=== PATIENT | female | born 1970 | race Caucasian/White ===

== ENCOUNTER 2017-08-31 13:30 | Inpatient (IN) | payer SELFPAY ==
[~2017-08-31] VITALS: Ht 154.9 cm; Wt 42.2 kg
[2017-08-31] MEDS ORDERED: IV NORMAL SALINE 1,000ML 1,000 ML IV ONE ×3 (14:30→16:00)
[2017-08-31] MEDS ORDERED: ONDANSETRON PF 4 MG/2 ML VIAL. IV ONE (14:30)
[2017-08-31 14:31] LABS: BASO # 0.1 x10^3/uL (0.0-0.2); BASO % 1 % (0-3); EOS # 0.1 x10^3/uL (0.0-0.7); EOS % 1 % (0-3); HEMATOCRIT 54.7 % (36.0-47.0); HEMOGLOBIN 17.2 g/dL (12.0-15.5); LYMPH # 0.3 x10^3/uL (1.0-4.8); LYMPH % 3 % (24-48); MEAN CORPUSCULAR HEMOGLOBIN 33 pg (25-35); MEAN CORPUSCULAR HGB CONC 32 g/dL (31-37); MEAN CORPUSCULAR VOLUME 106 fL (79-100); MONO # 0.3 x10^3/uL (0.0-1.1); MONO % 2 % (0-9); NEUT # 10.7 x10^3uL (1.8-7.7); NEUT % 93 % (31-73); PLATELET COUNT 203 x10^3/uL (140-400); RED BLOOD COUNT 5.17 x10^6/uL (3.50-5.40); RED CELL DISTRIBUTION WIDTH 14.3 % (11.5-14.5); WHITE BLOOD COUNT 11.5 x10^3/uL (4.0-11.0)
[2017-08-31 14:31] LABS: BACTERIA,URINE 0 /HPF (0-FEW); BILIRUBIN,URINE NEG (NEG); CLARITY,URINE HAZY; COLOR,URINE YELLOW; GLUCOSE,URINE >=1000 mg/dL (NEG); NITRITE,URINE NEG (NEG); RBC,URINE 0 /HPF (0-2); SQUAMOUS EPITHELIAL CELL,UR FEW /LPF; UROBILINOGEN,URINE 1 mg/dL (0.2 mg/dL); WBC,URINE RARE /HPF (0-4)
[2017-08-31 14:39] LABS: ALBUMIN/GLOBULIN RATIO 0.4 (1.0-1.7); ALK PHOS 374 U/L (46-116); ALT (SGPT) 67 U/L (14-59); ANION GAP 8 (6-14); AST (SGOT) 136 U/L (15-37); BLOOD UREA NITROGEN 28 mg/dL (7-20); BUN/CREATININE RATIO 16 (6-20); CALCIUM 10.7 mg/dL (8.5-10.1); CARBON DIOXIDE 31 mmol/L (21-32); CHLORIDE 82 mmol/L (98-107); CREATINE KINASE < 15 U/L (26-192); CREATININE 1.8 mg/dL (0.6-1.0); GFR 30.3; LIPASE 38 U/L (73-393); POTASSIUM 4.3 mmol/L (3.5-5.1); SODIUM 121 mmol/L (136-145); TOTAL BILIRUBIN 0.7 mg/dL (0.2-1.0); TOTAL PROTEIN 7.2 g/dL (6.4-8.2)
[2017-08-31 14:48] LABS: BARBITURATES NEG (NEG); BENZODIAZEPINES NEG (NEG); CANNABINOIDS NEG (NEG); COCAINE NEG (NEG); METHADONE NEG (NEG); OPIATES NEG (NEG); PHENCYCLIDINE NEG (NEG)
[2017-08-31 14:49] LABS: AMPHETAMINE/METHAMPHETAMINE NEG (NEG)
[2017-08-31] MEDS ORDERED: INSULIN REGULAR 100 UNIT/ML 10ML VIAL. IV ONE (15:00)
[2017-08-31] MEDS ORDERED: PIPERACILLIN/TAZOBACTAM 3.375 GM in IV NORMAL SALINE 50ML 50 ML IV ONE (15:00)
[2017-08-31 15:03] LABS: BGAS PH 7.35 (7.35-7.45)
[2017-08-31 15:11] LABS: GLUCOSE 1270 mg/dL (70-99)
[2017-08-31] MEDS ORDERED: PIPERACILLIN/TAZOBACTAM 3.375 GM VIAL IV ONE (15:15)
[2017-08-31] MEDS ORDERED: IV NORMAL SALINE 50ML 50 ML ONE (15:15)
--- NOTE | 2017-08-31 15:31 | RAD ---
Indication: Weakness and elevated lactic acid. Time of exam 1517 hours. Correlation is made with prior exam from 11/10/2011. Airspace consolidation is noted in the left lung base, partially obscuring the left hemidiaphragm. This is likely owing to pneumonia. The right lung is clear. No effusion or pneumothorax is seen. Impression: Findings suggestive of left basilar pneumonia. Follow-up after course of therapy is recommended to confirm clearing.
--- NOTE | 2017-08-31 15:39 | PHYS DOC ---
Past History Past Medical History: Diabetes, Hypotension Additional Past Medical Histor: injection drug use Past Surgical History: Other Smoking: Cigarettes, Less than 1pk/day Alcohol Use: None Drug Use: None Adult General Chief Complaint Chief Complaint: nausea, vomiting, weakness HPI HPI 46-year-old female patient with history of diabetes mellitus and states she didn 't take any medication for the last one year because of financial problem. Patient complaining of frequent episodes of nausea and vomiting for the last 4 days and states she had more than 4 episodes of vomiting every day and tried to drink lots of sodas. Patient complaining of chronic constipation without new changed for the last 4 days. Patient complaining of urinary frequency without dysuria and generalized weakness and states she is hurting from head to toe and she never felt like this in her life. Patient complaining of episodes of cough during vomiting and left lateral chest wall pain with cough for the last 5 days. Review of Systems Review of Systems Constitutional: Denies fever or chills reports weakness[] Eyes: Denies change in visual acuity, redness, or eye pain [] HENT: Denies nasal congestion or sore throat [] Respiratory: Reports cough or shortness of breath [] Cardiovascular: No additional information not addressed in HPI [] GI: Denies abdominal pain, bloody stools or diarrhea , reports nausea and vomiting[] : Denies dysuria or hematuria [] Musculoskeletal: Denies back pain or joint pain, reports muscle pain [] Integument: Denies rash or skin lesions [] Neurologic: Denies headache, focal weakness or sensory changes [] Endocrine: Denies polyuria or polydipsia [] All other systems were reviewed and found to be within normal limits, except as documented in this note. Current Medications Current Medications Current Medications Medications (Trade) Dose Ordered Sig/[facility] Start Time Stop Time Status Last Admin Dose Admin Insulin Human Regular (NovoLIN R) 10 unit 1X ONCE 08/31/17 15:00 08/31/17 15:01 DC Insulin Human Regular 150 unit/ Sodium Chloride 151.5 ml @ 0 mls/hr 1X ONCE 08/31/17 15:45 08/31/17 15:46 Ondansetron HCl (Zofran) 4 mg 1X ONCE 08/31/17 14:30 08/31/17 14:31 DC Piperacillin Sod/ Tazobactam Sod (Zosyn) 3.375 gm STK-MED ONCE 08/31/17 15:15 08/31/17 15:16 DC Piperacillin Sod/ Tazobactam Sod 3.375 gm/Sodium Chloride 50 ml @ 100 mls/hr 1X ONCE 08/31/17 15:00 08/31/17 15:29 DC 08/31/17 15:20 100 MLS/HR Sodium Chloride 50 ml @ As Directed STK-MED ONCE 08/31/17 15:15 08/31/17 15:16 DC Allergies Allergies Allergies Coded Allergies Type Severity Reaction Last Updated Verified codeine Allergy Intermediate Unknown 04/04/14 Yes Physical Exam Physical Exam Constitutional: Moderate distress, toxic appearance ,very thin and dry, anxious. [] HENT: Normocephalic, atraumatic, bilateral external ears normal, oropharynx dry , no oral exudates, nose normal. [] Eyes: PERRLA, EOMI, conjunctiva normal, no discharge. [] Neck: Normal range of motion, no tenderness, supple, no stridor. [] Cardiovascular: Tachycardia, no murmur [] Lungs & Thorax: Bilateral breath sounds clear to auscultation [] Abdomen: Bowel sounds normal, soft, no tenderness, no masses, no pulsatile masses. [] Skin: Warm, dry, no erythema, no rash. [] Back: No tenderness, no CVA tenderness. [] Extremities: No tenderness, no cyanosis, no clubbing, ROM intact, no edema. [] Neurologic: Alert and oriented X 3, normal motor function, normal sensory function, no focal deficits noted. [] Psychologic: judgement normal, anxious Current Patient Data Vital Signs Vital Signs Date Time Temp Pulse Resp B/P (MAP) Pulse Ox O2 Delivery O2 Flow Rate FiO2 08/31/17 13:45 99.1 113 18 95 Room Air Lab Results Laboratory Tests Test 08/31/17 13:50 08/31/17 14:10 08/31/17 14:45 White Blood Count 11.5 x10^3/uL (4.0-11.0) H Red Blood Count 5.17 x10^6/uL (3.50-5.40) Hemoglobin 17.2 g/dL (12.0-15.5) H Hematocrit 54.7 % (36.0-47.0) H Mean Corpuscular Volume 106 fL (79-100) H Mean Corpuscular Hemoglobin 33 pg (25-35) Mean Corpuscular Hemoglobin Concent 32 g/dL (31-37) Red Cell Distribution Width 14.3 % (11.5-14.5) Platelet Count 203 x10^3/uL (140-400) Neutrophils (%) (Auto) 93 % (31-73) H Lymphocytes (%) (Auto) 3 % (24-48) L Monocytes (%) (Auto) 2 % (0-9) Eosinophils (%) (Auto) 1 % (0-3) Basophils (%) (Auto) 1 % (0-3) Neutrophils # (Auto) 10.7 x10^3uL (1.8-7.7) H Lymphocytes # (Auto) 0.3 x10^3/uL (1.0-4.8) L Monocytes # (Auto) 0.3 x10^3/uL (0.0-1.1) Eosinophils # (Auto) 0.1 x10^3/uL (0.0-0.7) Basophils # (Auto) 0.1 x10^3/uL (0.0-0.2) Prothrombin Time 11.1 SEC (9.4-11.4) Prothrombin Time INR 1.1 (0.9-1.1) Sodium Level 121 mmol/L (136-145) L Potassium Level 4.3 mmol/L (3.5-5.1) Chloride Level 82 mmol/L (98-107) L Carbon Dioxide Level 31 mmol/L (21-32) Anion Gap 8 (6-14) Blood Urea Nitrogen 28 mg/dL (7-20) H Creatinine 1.8 mg/dL (0.6-1.0) H Estimated GFR (Cockcroft-Gault) 30.3 BUN/Creatinine Ratio 16 (6-20) Glucose Level 1270 mg/dL (70-99) *H Lactic Acid Level 7.5 mmol/L (0.4-2.0) *H Calcium Level 10.7 mg/dL (8.5-10.1) H Total Bilirubin 0.7 mg/dL (0.2-1.0) Aspartate Amino Transferase (AST) 136 U/L (15-37) H Alanine Aminotransferase (ALT) 67 U/L (14-59) H Alkaline Phosphatase 374 U/L (46-116) H Creatine Kinase < 15 U/L (26-192) L Troponin I Quantitative < 0.017 ng/mL (0-0.055) Total Protein 7.2 g/dL (6.4-8.2) Albumin 2.0 g/dL (3.4-5.0) L Albumin/Globulin Ratio 0.4 (1.0-1.7) L Lipase 38 U/L (73-393) L Urine Collection Type Unknown Urine Color Yellow Urine Clarity Hazy Urine pH 5.5 Urine Specific [place] <=1.005 Urine Protein Neg (NEG-TRACE) Urine Glucose (UA) >=1000 mg/dL (NEG) Urine Ketones (Stick) Neg mg/dL (NEG) Urine Blood Neg (NEG) Urine Nitrite Neg (NEG) Urine Bilirubin Neg (NEG) Urine Urobilinogen Dipstick 1 mg/dL (0.2 mg/dL) Urine Leukocyte Esterase Neg (NEG) Urine RBC 0 /HPF (0-2) Urine WBC Rare /HPF (0-4) Urine Squamous Epithelial Cells Few /LPF Urine Bacteria 0 /HPF (0-FEW) Urine Opiates Screen Neg (NEG) Urine Methadone Screen Neg (NEG) Urine Barbiturates Neg (NEG) Urine Phencyclidine Screen Neg (NEG) Urine Amphetamine/Methamphetamine Neg (NEG) Urine Benzodiazepines Screen Neg (NEG) Urine Cocaine Screen Neg (NEG) Urine Cannabinoids Screen Neg (NEG) Urine Ethyl Alcohol Neg (NEG) Blood pH 7.35 (7.35-7.45) Blood Gas PCO2 49 mmHg (35-45) H Blood Gas PO2 65 mmHg (80-100) L Blood Gas HCO3 27 mmol/L (22-26) H Arterial Bld O2 Saturation (Calc) 91 % (92-99) L FiO2 21 % EKG EKG [EKG interpreted by me. EKG at 1529 showed sinus tachycardia rate of 103,left atrial enlargement, abnormal right axis deviation, poor R-wave progress in anteroseptal leads Radiology/Procedures Radiology/Procedures Chest x-ray showed left lower lobe infiltrate[] Course & Med Decision Making Course & Med Decision Making Pertinent Labs and Imaging studies reviewed. (See chart for details) Inhalation of patient in ER showed 46-year-old female patient with history of diabetes mellitus without taking her medication presented to ER with generalized weakness and nausea and vomiting and confusion. Patient had blood sugar of more than 600. ABG did not show DKA. Patient started on IV fluid and insulin bolus and drip. Blood sugar was 1271 and lactic acid was 7.5. Sepsis protocol was started. Chest x-ray showed left lower lobe infiltration. On-call hospitalist documented was consulted at 1520 and agreed with plan of care. Patient was admitted to ICU with continuing Insulin drip and IV fluid and Zosyn and vancomycin. Repeat blood sugars was more than 600. Dragon Disclaimer Dragon Disclaimer This electronic medical record was generated, in whole or in part, using a voice recognition dictation system. Departure Departure: Impression: Primary Impression: Type 2 diabetes mellitus with hyperosmolar nonketotic hyperglycemia Additional Impressions: Severe sepsis Nausea and vomiting Tobacco abuse CAP (community acquired pneumonia) Noncompliance with diabetes treatment Renal insufficiency Severe dehydration Disposition: 09 ADMITTED INPATIENT (At 1520) Admitting Physician: Tyrone Steve Condition: GUARDED Referrals: PCP,NO (PCP) Critical Care Time Critical care time was [120] minutes exclusive of procedures. Problem Qualifiers SOLEDAD HOPPER MD Aug 31, 2017 15:39
[2017-08-31] MEDS ORDERED: ONDANSETRON PF 4 MG/2 ML VIAL. IV PRN (15:45)
[2017-08-31] MEDS ORDERED: INSULIN REGULAR 150 UNIT in 0.9 % SODIUM CHLORIDE 150ML 150 ML IV ONE (15:45)
[2017-08-31] MEDS ORDERED: VANCOMYCIN 1 GM in IV NORMAL SALINE 250ML 250 ML IV ONE (16:30)
[2017-08-31] MEDS ORDERED: VANCOMYCIN 1 GM VIAL. ONE (16:47)
[2017-08-31] MEDS ORDERED: IV NORMAL SALINE 250ML 250 ML ONE (16:47)
[2017-08-31 18:20] VITALS: BP 170/97
--- NOTE | 2017-08-31 18:25 | EKG ---
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
[2017-08-31] MEDS: PIPERACILLIN/TAZOBACTAM 2.25 GM in IV NORMAL SALINE 50ML 50 ML IV SCH (18:35)
[2017-08-31] MEDS ORDERED: ENOXAPARIN 30 MG/0.3 ML DISP.SYRIN. SQ SCH (19:00)
[2017-08-31] MEDS: VANCOMYCIN PER PHARMACY MC PRN (19:06)
[2017-08-31 19:11] VITALS: BP 162/105
[2017-08-31] MEDS ORDERED: amLODIPine BESYLATE 5 MG TABLET PO ONE (19:15)
[2017-08-31 19:18] LABS: CALCIUM 9.1 mg/dL (8.5-10.1); CREATININE 1.3 mg/dL (0.6-1.0); GFR 44.1; POTASSIUM 3.1 mmol/L (3.5-5.1)
--- NOTE | 2017-08-31 19:31 | HP ---
ADMIT DATE: 08/31/2017 HISTORY OF PRESENT ILLNESS: The patient is a 46-year-old female patient who was brought to the Emergency Room with a complaint of recurrent episodes of nausea, vomiting, has been going on for the last 4 days. She apparently has been drinking 7 up and Sprite as her mouth is dry and she also complained of constipation and urinary frequency without dysuria, generalized weakness. She said that she has been hurting from head to toe and never felt like this in her life. She also had cough during vomiting and left lateral chest wall pain with cough for the last 5 days. She was evaluated in the Emergency Room, was found to have marked hyperglycemia with a blood sugar of , dilutional hyponatremia; however, anion gap was only 8. She has also elevated BUN and creatinine, hypercalcemia, deranged liver enzymes, and a lactic acid of 7.5. She has also mild leukocytosis. Her blood gases showed a pH of 7.35, pCO2 of 49, pO2 of 65. Urinalysis was unremarkable. Toxic screen was unremarkable. The patient was admitted with a hyperosmolar nonketotic hyperglycemia. Apparently, the patient has not had any medication diabetes for more than a year. The last thing she was on Invokana. She stated that she has not taken any medication for almost a year when she was in the Emergency Room. When she arrived to the ICU, she could not be more specific. PAST MEDICAL HISTORY: Significant for type 2 diabetes mellitus and hypertension. PAST SURGICAL HISTORY: Significant for cholecystectomy. ALLERGIES: She is allergic to CODEINE. MEDICATIONS: She has not been taking any medication by prescription. She has been taking Nyquil and DayQuil. FAMILY HISTORY: She is adopted and does not know her biological parents. SOCIAL HISTORY: She is , has 2 children, a daughter and a son. She smokes a pack a day. She does not drink alcohol or use any drugs. She is unemployed. REVIEW OF SYSTEMS: The patient denied any blurring of vision, cataract, glaucoma or macular degeneration. Denied any earache, tinnitus or sensorineural deafness. Denied any nosebleeds or postnasal drip. Denied any sore throat, sore tongue, toothache, hoarseness of voice or difficulty swallowing. Did complain of nausea and vomiting as well as constipation. Denied any diarrhea. She did complain of polyuria, but denied any dysuria or frequency. He did complain of left-sided chest pain, recurrent bouts of cough. She could not be more specific about the color of her sputum. PHYSICAL EXAMINATION: GENERAL: On arrival to the Emergency Room, she was pale, cachectic, but not jaundiced. She was only 93 pounds. There was no jaundice or cyanosis. No thyromegaly. No jugular venous distension. No lower limb edema. VITAL SIGNS: Her heart rate was 113, blood pressure was markedly elevated. Her temperature was 99.1, respiratory rate was 18, and oxygen saturation was 95%. HEAD, EYES, EARS, NOSE, AND THROAT: Showed normocephalic, atraumatic. NECK: Supple. HEART: Showed normal first and second heart sounds with no gallop, rub or murmur. CHEST: Shows central trachea, equally reduced expansion, reduced air entry, expansion with crepitation mostly on the left side posteriorly. ABDOMEN: Scaphoid, soft, nontender. No guarding or rigidity. No organomegaly. Hernial orifice intact. Bowel sounds normal. NEUROLOGIC: She was awake, alert, responding appropriately. Cranial nerves intact. EXTREMITIES: She moves extremities without difficulty. LABORATORY DATA: On arrival to the Emergency Room showed that her white cell count was 11,500, hemoglobin 17.2, hematocrit 54.7, MCV 106, and platelet count of 203,000 with normal manual differential. Her blood gases showed a pH of 7.35, pCO2 of 49, pO2 of 65, bicarbonate 27, and oxygen saturation was 91% on FIO2 of 21%. Her prothrombin time was 11.1, INR 1.1. Her chemistry showed a serum sodium 121, potassium 4.3, chloride 82, bicarbonate 31, anion gap of 8, BUN 28, creatinine 1.8. Her blood glucose was 1270, lactic acid was as high at 7.5, calcium was 10.5. Total bilirubin is normal. AST, ALT, alkaline phosphatase were markedly elevated. Her troponin was 7.2, albumin was 2, and serum lipase was 38. Her urinalysis was essentially unremarkable. Her urine was yellow, hazy with a pH of 5.5, specific gravity 1.005. The urine was negative for protein. There was large amount of glucose, negative for ketones, blood, nitrite, and leukocyte esterase. There were 0 rbc's, 0 wbc's, and no bacteria. His toxicology screen was essentially negative. His chest x-ray showed that airspace consolidation is noted in the left lung base, opacities obscuring the left hemidiaphragm. This is likely owing to pneumonia, the right lung is clear. No effusion or pneumothorax with the impression is that the finding is suggestive of left basilar pneumonia. Follow up after a course of therapy recommended to confirm clearing. SUMMARY: This is a 46-year-old female patient who is known to have type 2 diabetes and hypertension. Has not been on any medication for almost a year, came with recurrent bouts of nausea, vomiting, diarrhea, generalized aches and pains, and cough. She said she lost weight, but she could not specifically specify how much weight she lost and almost a year ago, she was on Invokana for her diabetes and has not been on any medication for more than a year now. Initial evaluation showed that she has hyperosmolar nonketotic hyperglycemia. She has leukocytosis, lactic acidosis, and sepsis due to left lower lobe pneumonia, dilutional hyponatremia, markedly deranged liver enzymes and also acute kidney injury. Her BUN was 28, creatinine 1.8. I do not have any baseline to compare with if she has any impaired kidney function before, although she likely or theoretically could have an impaired kidney function. Her BUN and creatinine in 2013 were 10 and 0.8. However, she does have impaired liver enzymes since that time, probably indicating that she has chronic liver disease, probably because of hepatitis or some other pathology. PLAN: My plan is to continue with the insulin drip, IV fluid. Her blood pressure was extremely high. I will start her also on Cardene drip and we will repeat all her labs tomorrow morning. Continue with IV antibiotic for pneumonia and decide. We will monitor her blood sugar and decide on further management accordingly. GUILLE DEVINE MD DR: KIKO/tony JOB#: [id number] / [id number]
[2017-08-31 20:00] VITALS: BP 163/96
[2017-08-31] MEDS ORDERED: IV NORMAL SALINE 1,000ML 1,000 ML IV SCH (20:15)
[2017-08-31] MEDS ORDERED: INSULIN REGULAR 150 UNIT in 0.9 % SODIUM CHLORIDE 150ML 150 ML IV PRN (20:15)
[2017-08-31 21:00] VITALS: BP 120/75
[2017-08-31 22:00] VITALS: BP 160/102
[2017-08-31 22:38] LABS: CALCIUM 9.2 mg/dL (8.5-10.1); CREATININE 0.9 mg/dL (0.6-1.0); GFR 67.4; POTASSIUM 3.3 mmol/L (3.5-5.1)
[2017-08-31 23:00] VITALS: BP 150/94
[2017-08-31] MEDS ORDERED: MAGNESIUM SULFATE 2GM 50 ML IV ONE (23:00)
[2017-08-31] MEDS: POTASSIUM CL 20MEQ D5-0.45NACL 1,000 ML IV SCH (23:20)
[2017-09-01] VITALS (8 sets, daily range): BP systolic 141–187; BP diastolic 93–123
[2017-09-01] MEDS: PIPERACILLIN/TAZOBACTAM 2.25 GM in IV NORMAL SALINE 50ML 50 ML IV SCH (01:34)
[2017-09-01 06:21] LABS: HEMATOCRIT 45.5 % (36.0-47.0); HEMOGLOBIN 15.5 g/dL (12.0-15.5); RED BLOOD COUNT 4.67 x10^6/uL (3.50-5.40); RED CELL DISTRIBUTION WIDTH 13.3 % (11.5-14.5); WHITE BLOOD COUNT 10.8 x10^3/uL (4.0-11.0)
[2017-09-01] MEDS ORDERED: MORPHINE SULFATE 2 MG/ML DISP.SYRIN. IV PRN (06:30)
[2017-09-01 06:35] LABS: ALBUMIN 1.6 g/dL (3.4-5.0); ALBUMIN/GLOBULIN RATIO 0.4 (1.0-1.7); CALCIUM 9.1 mg/dL (8.5-10.1); CREATININE 1.1 mg/dL (0.6-1.0); GFR 53.5; POTASSIUM 4.1 mmol/L (3.5-5.1); TOTAL BILIRUBIN 0.5 mg/dL (0.2-1.0); TOTAL PROTEIN 6.1 g/dL (6.4-8.2)
[2017-09-01] MEDS ORDERED: amLODIPine BESYLATE 10 MG TABLET PO ONE (06:45)
[2017-09-01] MEDS: POTASSIUM CL 20MEQ D5-0.45NACL 1,000 ML IV SCH (06:53)
[2017-09-01] MEDS ORDERED: DEXTROSE 50% 25 GM / 50ML DISP.SYRIN. IV PRN (07:30)
[2017-09-01] MEDS ORDERED: KETOROLAC 30 MG/ML VIAL. IV PRN (07:30)
[2017-09-01] MEDS ORDERED: ACETAMINOPHEN 325 MG TABLET PO PRN (07:30)
[2017-09-01] MEDS ORDERED: INSULIN ASPART 300 UNITS/3 ML INSULN.PEN SQ PRN (07:30)
[2017-09-01] MEDS: VANCOMYCIN PER PHARMACY MC PRN (10:57)
[2017-09-01] MEDS ORDERED: VANCOMYCIN 750 MG in IV NORMAL SALINE 250ML 250 ML IV SCH (18:30)
[2017-09-02 01:09] LABS: HCV ANTIBODY >11.0 s/co ratio (0.0-0.9); HEP A IGM ABDY Negative (Negative)
[2017-09-02 02:07] LABS: HEMOGLOBIN A1C 16.7 % (4.8-5.6)
== END 2017-09-01 10:33 | disposition left against medical advice (07) | DRG 871 ==
LOC: ER 13:30 → ICU 15:34
PROVIDERS: ADMIT Internal Medicine; ATTEND Internal Medicine
DX: A41.9 Sepsis, unspecified organism (principal); E11.00 Type 2 diabetes mellitus with hyperosmolarity without nonketotic hyperglycemic-hyperosmolar coma (NKHHC); J18.9 Pneumonia, unspecified organism; N17.9 Acute kidney failure, unspecified; E86.0 Dehydration; E87.1 Hypo-osmolality and hyponatremia; E83.52 Hypercalcemia; F17.210 Nicotine dependence, cigarettes, uncomplicated; I10 Essential (primary) hypertension; K59.09 Other constipation; R65.20 Severe sepsis without septic shock; Z59.9 Problem related to housing and economic circumstances, unspecified; Z91.19 Patient's noncompliance with other medical treatment and regimen; Z88.5 Allergy status to narcotic agent; Z90.49 Acquired absence of other specified parts of digestive tract; Z53.21 Procedure and treatment not carried out due to patient leaving prior to being seen by health care provider
CPT/HCPCS: 36415; 71010; 80048; 80053; 80061; 80074; 80307; 81001; 82010; 82550; 82803; 82947; 83036; 83605; 83690; 83735; 84484; 85025; 85027; 85610; 87040; 87641; 93005; J1650; J1815; J2405; J2543; J3370; J3475; J7050; G0479; J7030

== ENCOUNTER 2017-09-15 07:54 | Emergency (ER) | payer SELFPAY ==
[~2017-09-15] VITALS: Ht 165.1 cm; Wt 38.1 kg
[2017-09-15 07:55] VITALS: BP 112/85
[2017-09-15] MEDS ORDERED: IV NORMAL SALINE 1,000ML 1,000 ML IV SCH (08:01)
[2017-09-15] MEDS ORDERED: 0.9 % SODIUM CHLORIDE 10 ML DISP.SYRIN. IV ONE (08:15)
[2017-09-15 08:25] LABS: BASO % 0 % (0-3); EOS % 0 % (0-3); HEMATOCRIT 51.3 % (36.0-47.0); HEMOGLOBIN 16.1 g/dL (12.0-15.5); LYMPH # 1.2 x10^3/uL (1.0-4.8); LYMPH % 11 % (24-48); MEAN CORPUSCULAR HEMOGLOBIN 32 pg (25-35); MEAN CORPUSCULAR HGB CONC 31 g/dL (31-37); MEAN CORPUSCULAR VOLUME 103 fL (79-100); MONO # 0.5 x10^3/uL (0.0-1.1); MONO % 5 % (0-9); NEUT # 9.4 x10^3uL (1.8-7.7); NEUT % 84 % (31-73); PLATELET COUNT 234 x10^3/uL (140-400); RED BLOOD COUNT 4.98 x10^6/uL (3.50-5.40); RED CELL DISTRIBUTION WIDTH 14.4 % (11.5-14.5); WHITE BLOOD COUNT 11.2 x10^3/uL (4.0-11.0)
[2017-09-15 08:44] LABS: ALBUMIN 2.4 g/dL (3.4-5.0); ALBUMIN/GLOBULIN RATIO 0.5 (1.0-1.7); CALCIUM 9.6 mg/dL (8.5-10.1); CREATININE 2.4 mg/dL (0.6-1.0); GFR 21.7; TOTAL BILIRUBIN 0.7 mg/dL (0.2-1.0); TOTAL PROTEIN 7.1 g/dL (6.4-8.2)
[2017-09-15] MEDS ORDERED: IV NORMAL SALINE 1,000ML 1,000 ML IV ONE ×2 (08:45→11:15)
[2017-09-15 08:53] LABS: BGAS PH 7.47 (7.35-7.45)
[2017-09-15] MEDS ORDERED: INSULIN REGULAR 150 UNIT in 0.9 % SODIUM CHLORIDE 150ML 150 ML IV ONE (09:00)
[2017-09-15] MEDS ORDERED: PIPERACILLIN/TAZOBACTAM 3.375 GM in IV NORMAL SALINE 50ML 50 ML IV ONE (09:00)
[2017-09-15 09:03] LABS: POTASSIUM 2.8 mmol/L (3.5-5.1)
--- NOTE | 2017-09-15 09:13 | RAD ---
Chest radiograph 09/15/2017 10:01 AM Indication: Fall, possible seizure Comparison: Chest radiograph 08/31/2017 Technique: Single frontal view of the chest is provided. Findings: Cardiomediastinal silhouette is within normal limits. No pleural effusions, pulmonary vascular congestion or pneumothorax. There is increased patchy interstitial opacity in the right lung base. Osseous structures are normal. Impression: Increased patchy interstitial opacity in the right lung base may be secondary to overlapping soft tissues versus pulmonary infiltrate. Short-term follow-up two-view chest radiograph would be of benefit.
[2017-09-15] MEDS ORDERED: POTASSIUM CHLORIDE 10MEQ 100 ML IV SCH (09:15)
[2017-09-15] MEDS ORDERED: PIPERACILLIN/TAZO IV Push 3.375 GM VIAL. IVP ONE (09:15)
[2017-09-15] MEDS ORDERED: INSULIN REGULAR 100 UNIT/ML 10ML VIAL. IV ONE (09:15)
--- NOTE | 2017-09-15 09:18 | PHYS DOC ---
Past History Past Medical History: Diabetes, Hypotension Additional Past Medical Histor: injection drug use Past Surgical History: Other Smoking: Cigarettes, Less than 1pk/day Alcohol Use: None Drug Use: Methamphetamine Adult General Chief Complaint Chief Complaint: mouth bleeding HPI HPI 46-year-old female patient brought in by EMS because of bleeding from her mouth. Patient mother states states she was seen at 4:30 and did not have any bleeding at around 6:30 AM she had bleeding around her mouth and was not able to give any history about her bleeding. Patient was admitted on August 31 with diagnosis of severe sepsis, pneumonia and hyperosmolar hyperglycemia and left AMA one week ago and was not able to eat or drink anything. Patient's son reported that she was using methamphetamine. She is not able to give history and has actively bleeding from her mouth without having IV access by EMS. Review of Systems Review of Systems Unable to obtain because of medical condition Current Medications Current Medications Current Medications Medications (Trade) Dose Ordered Sig/[facility] Start Time Stop Time Status Last Admin Dose Admin Insulin Human Regular (NovoLIN R) 10 unit 1X ONCE 09/15/17 09:15 09/15/17 09:16 Insulin Human Regular 150 unit/ Sodium Chloride 151.5 ml @ 0 mls/hr 1X ONCE 09/15/17 09:00 09/15/17 09:08 DC Piperacillin Sod/ Tazobactam Sod (Zosyn) 3.375 gm 1X ONCE 09/15/17 09:15 09/15/17 09:16 Piperacillin Sod/ Tazobactam Sod 3.375 gm/Sodium Chloride 50 ml @ 100 mls/hr 1X ONCE 09/15/17 09:00 09/15/17 09:08 DC Potassium Chloride 100 ml @ 100 mls/hr Q1H 09/15/17 09:15 09/15/17 11:14 Sodium Chloride 1,000 ml @ 1,000 mls/hr 1X ONCE 09/15/17 08:45 09/15/17 09:44 Sodium Chloride (Normal Saline Flush) 10 ml 1X ONCE 09/15/17 08:15 09/15/17 08:16 DC Vancomycin HCl 1 gm/Sodium Chloride 250 ml @ 250 mls/hr 1X ONCE 09/15/17 09:00 09/15/17 09:59 UNV Allergies Allergies Allergies Coded Allergies Type Severity Reaction Last Updated Verified codeine Allergy Intermediate Unknown 04/04/14 Yes Physical Exam Physical Exam Constitutional: Very thin and cachectic patient, dehydrated, moderate distress, HENT: Normocephalic, atraumatic, active fresh blood coming out of the mouth, central tongue laceration about 1 cm, through to through Eyes: PERRLA, EOMI, conjunctiva normal, no discharge. [] Neck: Normal range of motion, no tenderness, supple, no stridor. [] Cardiovascular:Heart rate regular rhythm, no murmur [] Lungs & Thorax: Bilateral breath sounds clear to auscultation [] Abdomen: Bowel sounds normal, soft, no tenderness, no masses, no pulsatile masses. [] Skin: Lower extremity mottling and old ecchymoses Back: No tenderness, no CVA tenderness. [] Extremities: ROM intact, no edema. [] Neurologic: Alert, does not talk and unable to evaluate, moves all extremities Current Patient Data Lab Results Laboratory Tests Test 09/15/17 08:05 09/15/17 08:28 White Blood Count 11.2 x10^3/uL (4.0-11.0) H Red Blood Count 4.98 x10^6/uL (3.50-5.40) Hemoglobin 16.1 g/dL (12.0-15.5) H Hematocrit 51.3 % (36.0-47.0) H Mean Corpuscular Volume 103 fL (79-100) H Mean Corpuscular Hemoglobin 32 pg (25-35) Mean Corpuscular Hemoglobin Concent 31 g/dL (31-37) Red Cell Distribution Width 14.4 % (11.5-14.5) Platelet Count 234 x10^3/uL (140-400) Neutrophils (%) (Auto) 84 % (31-73) H Lymphocytes (%) (Auto) 11 % (24-48) L Monocytes (%) (Auto) 5 % (0-9) Eosinophils (%) (Auto) 0 % (0-3) Basophils (%) (Auto) 0 % (0-3) Neutrophils # (Auto) 9.4 x10^3uL (1.8-7.7) H Lymphocytes # (Auto) 1.2 x10^3/uL (1.0-4.8) Monocytes # (Auto) 0.5 x10^3/uL (0.0-1.1) Eosinophils # (Auto) 0.0 x10^3/uL (0.0-0.7) Basophils # (Auto) 0.0 x10^3/uL (0.0-0.2) Sodium Level 145 mmol/L (136-145) Potassium Level 2.8 mmol/L (3.5-5.1) *L Chloride Level 95 mmol/L (98-107) L Carbon Dioxide Level 40 mmol/L (21-32) H Anion Gap 10 (6-14) Blood Urea Nitrogen 44 mg/dL (7-20) H Creatinine 2.4 mg/dL (0.6-1.0) H Estimated GFR (Cockcroft-Gault) 21.7 BUN/Creatinine Ratio 18 (6-20) Glucose Level mg/dL (70-99) Lactic Acid Level 5.5 mmol/L (0.4-2.0) *H Calcium Level 9.6 mg/dL (8.5-10.1) Total Bilirubin 0.7 mg/dL (0.2-1.0) Aspartate Amino Transferase (AST) 62 U/L (15-37) H Alanine Aminotransferase (ALT) 73 U/L (14-59) H Alkaline Phosphatase 552 U/L (46-116) H Ammonia < 10 mcmol/L (11-34) L Creatine Kinase 187 U/L (26-192) Troponin I Quantitative 0.069 ng/mL (0-0.055) H EF-Key-V-Type Natriuretic Peptide 1294 pg/mL (0-124) H Total Protein 7.1 g/dL (6.4-8.2) Albumin 2.4 g/dL (3.4-5.0) L Albumin/Globulin Ratio 0.5 (1.0-1.7) L Lipase 878 U/L (73-393) H Acetone Level Neg (NEG) Blood pH 7.47 (7.35-7.45) H Blood Gas PCO2 56 mmHg (35-45) H Blood Gas PO2 60 mmHg (80-100) L Blood Gas HCO3 42 mmol/L (22-26) H Arterial Bld O2 Saturation (Calc) 94 % (92-99) FiO2 28 % EKG EKG [EKG interpreted by me. EKG at 0936 showed multiple artifact with sinus rhythm at rate of 81, LDH, right ventricular hypertrophy, prolonged QT] Radiology/Procedures Radiology/Procedures [Chest x-ray showed questionable right lower lobe infiltration] Course & Med Decision Making Course & Med Decision Making Pertinent Labs and Imaging studies reviewed. (See chart for details) Evaluation of patient in ER showed 46-year-old female patient brought in by EMS because of bleeding from her mouth. Patient was very thin and skinny and dehydrated with "high" blood sugar. Patient had active bleeding from her mouth with a small laceration of her tongue that gradually stopped spontaneously. Lactic acid was 5.5 and patient treated with 2 L of IV fluid, vancomycin, Zosyn , insulin bolus and drip. Blood sugar reported 1553 and potassium of 2.8 with elevation of BUN/creatinine. 20 meq of potassium was started because of the chance of more decrease of potassium after starting insulin. Patient's family requesting transferring to another hospital with higher level of care ability. Hospitalist at [facility] Dr. Rincon accepted transfer at 0911 because of lack of ICU bed patient was not transferred to [facility]. Patient' s family members requesting hospital and did talking to transfer team Dr. Liz Thomas accepted transfer at 10:30. Patient condition gradually improved and started to talk and answering the question. Patient had stable vital signs while she was in ER. Patient and her family informed about test results and plan of care. Dragon Disclaimer Dragon Disclaimer This electronic medical record was generated, in whole or in part, using a voice recognition dictation system. Departure Departure: Impression: Primary Impression: Severe sepsis Additional Impressions: Uncontrolled type 2 DM with hyperosmolar nonketotic hyperglycemia Tongue laceration Hypokalemia Renal insufficiency Elevated troponin I level Elevated lipase Elevated liver function tests Disposition: 02 XFER SHT-TRM HOSP (the [facility] at 0911) Condition: GUARDED Referrals: PCP,NO (PCP) Critical Care Note Total Time (mins): 120 Problem Qualifiers SOLEDAD HOPPER MD Sep 15, 2017 09:18
[2017-09-15] MEDS ORDERED: VANCOMYCIN 1 GM in IV NORMAL SALINE 250ML 250 ML IV ONE (09:30)
[2017-09-15 09:32] LABS: BILIRUBIN,URINE NEG (NEG); CLARITY,URINE CLEAR; COLOR,URINE YELLOW; GLUCOSE,URINE >=1000 mg/dL (NEG)
[2017-09-15 09:33] LABS: BACTERIA,URINE 0 /HPF (0-FEW); NITRITE,URINE NEG (NEG); RBC,URINE 0 /HPF (0-2); SQUAMOUS EPITHELIAL CELL,UR OCC /LPF; UROBILINOGEN,URINE 0.2 mg/dL (0.2 mg/dL); WBC,URINE 0 /HPF (0-4)
[2017-09-15 09:38] LABS: BARBITURATES NEG (NEG); BENZODIAZEPINES NEG (NEG); CANNABINOIDS NEG (NEG); COCAINE NEG (NEG); METHADONE NEG (NEG); OPIATES NEG (NEG); PHENCYCLIDINE NEG (NEG)
[2017-09-15 09:39] LABS: AMPHETAMINE/METHAMPHETAMINE NEG (NEG)
--- NOTE | 2017-09-15 09:42 | EKG ---
[address] [address] Test Date: 2017-09-15 Test Time: 09:36:39 Pat Name: ONELIA CAMPBELL Department: Room: Gender: F Crystallographer: VALERY : 1970 Requested By: SOLEDAD HOPPER Order Number: [id number] Reading MD: Krishna James Measurements Intervals [place] Rate: 81 P: 102 NJ: 132 QRS: 81 QRSD: 118 T: -86 QT: 432 QTc: 508 Interpretive Statements SINUS RHYTHM RIGHT ATRIAL ENLARGEMENT LVH WITH REPOLARIZATION ABNORMALITY PROLONGED QT ABNORMAL ECG Electronically Signed On 09-22-2017 12:48:58 WARE CARRIER by Krishna James
--- NOTE | 2017-09-15 11:08 | RAD ---
CT head without contrast 09/15/2017 Indication: Patient found down on floor bleeding out of the mouth. Comparison: None available Technique: Multiple axial noncontrast CT images of the head were obtained from the skull base through the vertex. Cervical spine CT was obtained with intravenous contrast. Coronal and sagittal reformats are provided. Findings: Very limited examination secondary to patient motion artifact. No large extra-axial or intraparenchymal hemorrhage is identified. There is no significant midline shift. No hydrocephalus. Low-attenuation in the periventricular white matter is compatible with chronic small vessel ischemic changes. Orbits are limited in evaluation. Calvaria is limited in evaluation. Cervical spine: Extensive motion artifact limits evaluation for fractures. Extensive motion is noted through the dens with apparent fracture deformity. However, this is likely artifactual. No additional suspected fractures are identified. There is no prevertebral soft tissue swelling. Skull base appears intact. Evaluation of the neural foramen is limited, however no significant neuroforaminal stenosis is identified. Mild neural foraminal stenosis on the right is suspected at C4-C5 and C5-C6. Paraseptal emphysema is noted at the lung apices. Impression: Borderline nondiagnostic examination for evaluation of intracranial hemorrhage. No large intraparenchymal or extra-axial hematoma is identified. Nondiagnostic examination for evaluation of fractures of the cervical spine secondary to patient motion artifact. Apparent fracture involving the C2 vertebral body is suspected to be artifactual from motion. Repeat evaluation may be of benefit when clinically feasible. These findings were discussed with Dr. Demarco at 11:05 AM on 09/15/2017. PQRS Compliance Statement: One or more of the following individualized dose reduction techniques were utilized for this examination: 1. Automated exposure control 2. Adjustment of the mA and/or kV according to patient size 3. Use of iterative reconstruction technique
== END 2017-09-15 11:48 | disposition short-term general hospital (02) ==
LOC: ER 07:54 → EEVIPCON 07:54 → ER 11:48
DX: A41.9 Sepsis, unspecified organism (principal); R65.20 Severe sepsis without septic shock; S01.512A Laceration without foreign body of oral cavity, initial encounter; E11.00 Type 2 diabetes mellitus with hyperosmolarity without nonketotic hyperglycemic-hyperosmolar coma (NKHHC); E87.6 Hypokalemia; N28.9 Disorder of kidney and ureter, unspecified; R79.89 Other specified abnormal findings of blood chemistry; R74.8 Abnormal levels of other serum enzymes; F17.210 Nicotine dependence, cigarettes, uncomplicated; F15.10 Other stimulant abuse, uncomplicated; Z88.5 Allergy status to narcotic agent; X58.XXXA Exposure to other specified factors, initial encounter; Y93.89 Activity, other specified; Y99.8 Other external cause status; Y92.89 Other specified places as the place of occurrence of the external cause
CPT/HCPCS: 36415; 51702; 70450; 71045; 72125; 80053; 80307; 81001; 82010; 82140; 82550; 82803; 82947; 83605; 83690; 83880; 84484; 85025; 85610; 87040; 87205; 93005; 96361; 96365; 96366; 96368; 96375; 99291; 99292; J1815; J2543; J3370; J3480; J7050; G0479; J7030

== ENCOUNTER 2018-01-03 05:48 | Inpatient (IN) | payer SELFPAY ==
[~2018-01-03] VITALS: Ht 165.1 cm; Wt 50.8 kg
[2018-01-03] VITALS (13 sets, daily range): BP systolic 92–133; BP diastolic 65–93
[2018-01-03] MEDS ORDERED: ONDANSETRON PF 4 MG/2 ML VIAL. IV ONE (06:30)
[2018-01-03] MEDS ORDERED: IV NORMAL SALINE 1,000ML 1,000 ML IV ONE (06:30)
[2018-01-03] MEDS ORDERED: IV NORMAL SALINE 1,000ML 1,000 ML IV SCH ×2 (06:30→07:48)
[2018-01-03] MEDS ORDERED: INSULIN REGULAR 100 UNIT/ML 10ML VIAL. IV ONE (06:30)
[2018-01-03] MEDS ORDERED: 0.9 % SODIUM CHLORIDE 10 ML DISP.SYRIN. IV PRN (06:30)
[2018-01-03] MEDS ORDERED: INSULIN REGULAR VIAL 150 UNIT in 0.9 % SODIUM CHLORIDE 150ML 150 ML IV ONE (06:30)
[2018-01-03 06:46] LABS: BASO # 0.2 x10^3/uL (0.0-0.2); BASO % 1 % (0-3); EOS # 0.1 x10^3/uL (0.0-0.7); EOS % 1 % (0-3); HEMATOCRIT 53.1 % (36.0-47.0); HEMOGLOBIN 18.1 g/dL (12.0-15.5); LYMPH # 2.2 x10^3/uL (1.0-4.8); LYMPH % 17 % (24-48); MEAN CORPUSCULAR HEMOGLOBIN 32 pg (25-35); MEAN CORPUSCULAR HGB CONC 34 g/dL (31-37); MEAN CORPUSCULAR VOLUME 95 fL (79-100); MONO # 0.7 x10^3/uL (0.0-1.1); MONO % 6 % (0-9); NEUT # 9.7 x10^3uL (1.8-7.7); NEUT % 75 % (31-73); PLATELET COUNT 378 x10^3/uL (140-400); RED CELL DISTRIBUTION WIDTH 13.4 % (11.5-14.5); WHITE BLOOD COUNT 12.8 x10^3/uL (4.0-11.0)
[2018-01-03 07:01] LABS: ALBUMIN/GLOBULIN RATIO 0.6 (1.0-1.7); ALK PHOS 331 U/L (46-116); ALT (SGPT) 36 U/L (14-59); AST (SGOT) 23 U/L (15-37); BLOOD UREA NITROGEN 30 mg/dL (7-20); BUN/CREATININE RATIO 19 (6-20); CALCIUM 9.5 mg/dL (8.5-10.1); CARBON DIOXIDE 28 mmol/L (21-32); CREATININE 1.6 mg/dL (0.6-1.0); GFR 34.6; LIPASE 182 U/L (73-393); MAGNESIUM 1.8 mg/dL (1.8-2.4); PHOSPHORUS 4.3 mg/dL (2.6-4.7); TOTAL BILIRUBIN 0.4 mg/dL (0.2-1.0); TOTAL PROTEIN 8.3 g/dL (6.4-8.2)
[2018-01-03 07:06] LABS: BGAS PH 7.46 (7.35-7.45); GLUCOSE 733 mg/dL (70-99)
--- NOTE | 2018-01-03 07:39 | PHYS DOC ---
Past History Past Medical History: Diabetes, Hypertension, Hypotension Additional Past Medical Histor: injection drug use Past Surgical History: Cholecystectomy Smoking: Cigarettes, Less than 1pk/day Alcohol Use: None Drug Use: Methamphetamine Adult General Chief Complaint Chief Complaint: nausea and vomiting [facility] 47-year-old female patient with history of diabetes mellitus and noncompliance with treatment states she ran out of insulin for the last 4 days and did not take any medication and complaining of constant nausea and 3-4 episodes of vomiting daily for the last 3 days. Patient states she was not able to eat or drink anything because of nausea and vomiting and complaining of hurting all over. Patient complaining of abdominal pain during episodes of vomiting as a severe pain. Patient complaining of urinary frequency without diarrhea , constipation, fever and chills, chest pain and shortness of breath. Patient states she had the same problem previously and had a recent hospitalization at [facility] for 8 weeks. Review of Systems Review of Systems Constitutional: Denies fever or chills [] Eyes: Denies change in visual acuity, redness, or eye pain [] HENT: Denies nasal congestion or sore throat [] Respiratory: Denies cough or shortness of breath [] Cardiovascular: No additional information not addressed in HPI [] GI: Denies abdominal pain, nausea, vomiting, bloody stools or diarrhea [] : Denies dysuria or hematuria [] Musculoskeletal: Denies back pain or joint pain [] Integument: Denies rash or skin lesions [] Neurologic: Denies headache, focal weakness or sensory changes [] Endocrine: Denies polyuria or polydipsia [] All other systems were reviewed and found to be within normal limits, except as documented in this note. Current Medications Current Medications Current Medications Medications (Trade) Dose Ordered Sig/[facility] Start Time Stop Time Status Last Admin Dose Admin Insulin Human Regular (NovoLIN R) 10 unit 1X ONCE 01/03/18 06:30 01/03/18 06:31 DC Insulin Human Regular 150 unit/ Sodium Chloride 151.5 ml @ 4 mls/hr 1X ONCE 01/03/18 06:30 01/04/18 20:22 Ondansetron HCl (Zofran) 4 mg 1X ONCE 01/03/18 06:30 01/03/18 06:31 DC 01/03/18 06:45 4 MG Sodium Chloride 1,000 ml @ 1,000 mls/hr 1X ONCE 01/03/18 06:30 01/03/18 07:29 Sodium Chloride (Normal Saline Flush) 10 ml QSHIFT PRN 01/03/18 06:30 Allergies Allergies Allergies Coded Allergies Type Severity Reaction Last Updated Verified codeine Allergy Intermediate Unknown 04/04/14 Yes Physical Exam Physical Exam Constitutional: Moderate distress, non-toxic appearance, anxious. [] HENT: Normocephalic, atraumatic, oropharynx dry, no oral exudates, nose normal. [] Eyes: PERRLA, EOMI, conjunctiva normal, no discharge. [] Neck: Normal range of motion, no tenderness, supple, no stridor. [] Cardiovascular:Heart rate regular rhythm, no murmur [] Lungs & Thorax: Bilateral breath sounds clear to auscultation [] Abdomen: Bowel sounds normal, soft, generalized guarding, no tenderness, no masses, no pulsatile masses. [] Skin: Warm, dry, no erythema, no rash. [] Back: No tenderness, no CVA tenderness. [] Extremities: No tenderness, no cyanosis, no clubbing, ROM intact, no edema. [] Neurologic: Alert and oriented X 3, normal motor function, normal sensory function, no focal deficits noted. [] Psychologic: Anxious and agitated, judgement normal, mood normal. [] Current Patient Data Vital Signs Vital Signs Date Time Temp Pulse Resp B/P (MAP) Pulse Ox O2 Delivery O2 Flow Rate FiO2 01/03/18 06:25 86 18 121/83 (96) 97 Room Air 01/03/18 06:04 97.8 Lab Results Laboratory Tests Test 01/03/18 06:20 White Blood Count 12.8 x10^3/uL (4.0-11.0) H Red Blood Count 5.60 x10^6/uL (3.50-5.40) H Hemoglobin 18.1 g/dL (12.0-15.5) H Hematocrit 53.1 % (36.0-47.0) H Mean Corpuscular Volume 95 fL (79-100) Mean Corpuscular Hemoglobin 32 pg (25-35) Mean Corpuscular Hemoglobin Concent 34 g/dL (31-37) Red Cell Distribution Width 13.4 % (11.5-14.5) Platelet Count 378 x10^3/uL (140-400) Neutrophils (%) (Auto) 75 % (31-73) H Lymphocytes (%) (Auto) 17 % (24-48) L Monocytes (%) (Auto) 6 % (0-9) Eosinophils (%) (Auto) 1 % (0-3) Basophils (%) (Auto) 1 % (0-3) Neutrophils # (Auto) 9.7 x10^3uL (1.8-7.7) H Lymphocytes # (Auto) 2.2 x10^3/uL (1.0-4.8) Monocytes # (Auto) 0.7 x10^3/uL (0.0-1.1) Eosinophils # (Auto) 0.1 x10^3/uL (0.0-0.7) Basophils # (Auto) 0.2 x10^3/uL (0.0-0.2) Blood pH 7.46 (7.35-7.45) H Blood Gas PCO2 38 mmHg (35-45) Blood Gas PO2 81 mmHg (80-100) Blood Gas HCO3 27 mmol/L (22-26) H Arterial Bld O2 Saturation (Calc) 98 % (92-99) FiO2 21 % Sodium Level mmol/L (136-145) Potassium Level mmol/L (3.5-5.1) Chloride Level mmol/L (98-107) Carbon Dioxide Level 28 mmol/L (21-32) Anion Gap 8 (6-14) Blood Urea Nitrogen 30 mg/dL (7-20) H Creatinine 1.6 mg/dL (0.6-1.0) H Estimated GFR (Cockcroft-Gault) 34.6 BUN/Creatinine Ratio 19 (6-20) Glucose Level 733 mg/dL (70-99) *H Calcium Level 9.5 mg/dL (8.5-10.1) Phosphorus Level 4.3 mg/dL (2.6-4.7) Magnesium Level 1.8 mg/dL (1.8-2.4) Total Bilirubin 0.4 mg/dL (0.2-1.0) Aspartate Amino Transferase (AST) 23 U/L (15-37) Alanine Aminotransferase (ALT) 36 U/L (14-59) Alkaline Phosphatase 331 U/L (46-116) H Total Protein 8.3 g/dL (6.4-8.2) H Albumin 3.0 g/dL (3.4-5.0) L Albumin/Globulin Ratio 0.6 (1.0-1.7) L Lipase 182 U/L (73-393) Acetone Level Neg (NEG) EKG EKG [] Radiology/Procedures Radiology/Procedures [] Course & Med Decision Making Course & Med Decision Making Pertinent Labs studies reviewed. (See chart for details) Evaluation of patient in ER showed 47-year-old female patient with history of diabetes mellitus presented to ER because of not taking carrot insulin and having nausea and vomiting and generalized weakness. Patient had blood sugar of 1600 and treated with IV fluid, 10 units of insulin bolus and insulin drip at rate of 4 units per hour. ABG did not show sign of DKA. Blood sugar reported 733. Patient had more than 40 WBC and urine and Rocephin was given. Lactic acid was 2.7 and repeat lactic acid was requested. Patient did not have signs of sepsis including tachycardia, hypertension, fever. Patient became more calm and her abdomen exam was soft and nontender. Dr. Steve informed at 0746 and agreed with admitting the patient. [] Dragon Disclaimer Dragon Disclaimer This electronic medical record was generated, in whole or in part, using a voice recognition dictation system. Departure Departure: Impression: Primary Impression: Hyperglycemic crisis in diabetes mellitus Additional Impressions: Renal insufficiency Nausea and vomiting Dehydration Noncompliance with diabetes treatment Leukocytosis Elevated lactic acid level Tobacco abuse SIRS (systemic inflammatory response syndrome) Disposition: ADMITTED INPATIENT (At 0746) Admitting Physician: Tyrone Steve Condition: GUARDED Referrals: PCP,NO (PCP) Critical Care Time Critical care time was [70] minutes exclusive of procedures. Problem Qualifiers SOLEDAD HOPPER MD Jan 03, 2018 07:39
[2018-01-03] MEDS ORDERED: DEXTROSE 50% 25 GM / 50ML DISP.SYRIN. IV PRN (08:00)
[2018-01-03] MEDS ORDERED: ONDANSETRON PF 4 MG/2 ML VIAL. IV PRN ×2 (08:00→09:15)
[2018-01-03 08:16] LABS: POTASSIUM 4.4 mmol/L (3.5-5.1)
[2018-01-03 08:24] LABS: BILIRUBIN,URINE NEG (NEG); CLARITY,URINE TURBID; COLOR,URINE YELLOW; GLUCOSE,URINE 500 mg/dL (NEG); NITRITE,URINE NEG (NEG); UROBILINOGEN,URINE 0.2 mg/dL (0.2 mg/dL)
[2018-01-03 08:25] LABS: BACTERIA,URINE MOD /HPF (0-FEW); SQUAMOUS EPITHELIAL CELL,UR FEW /LPF; WBC,URINE >40 /HPF (0-4)
[2018-01-03 08:30] LABS: AMPHETAMINE/METHAMPHETAMINE NEG (NEG); BARBITURATES NEG (NEG); BENZODIAZEPINES NEG (NEG); CANNABINOIDS NEG (NEG); COCAINE NEG (NEG); METHADONE NEG (NEG); OPIATES NEG (NEG); PHENCYCLIDINE NEG (NEG)
[2018-01-03] MEDS ORDERED: cefTRIAXone IM 1 GM VIAL IM ONE (08:37)
[2018-01-03] MEDS: cefTRIAXone IV Push 1 GM VIAL. IVP SCH (08:44)
[2018-01-03] MEDS ORDERED: METOCLOPRAMIDE HCL 10 MG/2 ML VIAL. IV PRN (09:15)
[2018-01-03] MEDS ORDERED: INSULIN REGULAR VIAL 150 UNIT in 0.9 % SODIUM CHLORIDE 150ML 150 ML IV PRN (09:15)
[2018-01-03] MEDS: NICOTINE 21MG PATCH. TD SCH (09:47)
[2018-01-03] MEDS: POTASSIUM CL 20MEQ D5-0.45NACL 1,000 ML IV SCH ×3 (09:47→23:55)
--- NOTE | 2018-01-03 14:54 | HP ---
ADMIT DATE: 01/03/2018 HISTORY OF PRESENT ILLNESS: The patient is a 47-year-old female patient who is known to have type 2 diabetes and who apparently noncompliant with treatment states she ran out of her insulin for the last 4 days, did not take any medication, has complaint of constant nausea and multiple episodes of vomiting daily for the last 3 days. She also complained that she is hurting all over, together with abdominal pain during episode of vomiting. She did also complain of urinary frequency, however, she denied any diarrhea or constipation. Denied any chills, rigors, or fever. She was hospitalized recently at [facility] for 8 weeks for similar problems. PAST MEDICAL HISTORY: Significant for type 2 diabetes mellitus and hypertension. PAST SURGICAL HISTORY: Significant for cholecystectomy. ALLERGIES: She is allergic to CODEINE. MEDICATIONS: She has not been taking any medication by prescription. Apparently, Dr. Gutierrez was her primary care physician who left town and has not been able to get an appointment with his associate as she ran out of money. FAMILY HISTORY: She is adopted and does not know her biological parents. SOCIAL HISTORY: She is , has 2 children, a daughter and a son. She smokes a pack a day. She does not drink alcohol or recreational drugs. She is unemployed. REVIEW OF SYSTEMS: The patient denied any blurring of vision, cataract, glaucoma, or macular degeneration. Denied any earache, tinnitus, or sensorineural deafness. Denied any nosebleeds, stuffy nose, or postnasal drip. She denied any sore throat, sore tongue, toothache, hoarseness of voice or difficulty swallowing. Did complain of nausea, vomiting as well as abdominal pain. Denied any diarrhea. Did complain of frequency, but denied any dysuria. PHYSICAL EXAMINATION: GENERAL: On arrival to the Emergency Room, she looked cachectic, but no jaundice or cyanosis. No lymphadenopathy, no thyromegaly, no jugular distension. No lower limb edema. VITAL SIGNS: Her heart rate was 86, blood pressure was 121/83, temperature was 98.5, respiratory rate was 20, and oxygen saturation was 97%. HEAD, EYES, EARS, NOSE, AND THROAT: Normocephalic, atraumatic. NECK: Supple. HEART: Showed normal first and second heart sounds. No gallop, rub, or murmur. CHEST: Clear to auscultation. No crepitation or rhonchi. ABDOMEN: Distended, soft, nontender. No guarding or rigidity. No organomegaly. All hernial orifices intact. Bowel sounds normal. NEUROLOGIC: She was awake, alert, responding appropriately. Cranial nerves intact. She moves extremities without difficulty. She ambulates without assistance or assistive devices. Does have marked muscle wasting and she is cachectic with a body mass index of 118.5 kilograms square meter. LABORATORY DATA: While in the Emergency Room, she had lab work done showed a white cell count of 12,800, hemoglobin 18.1, hematocrit 53, MCV was 95, and a platelet count of 378,000. Her blood gases showed a pH of 7.46, pCO2 of 38, pO2 of 81, bicarbonate 27, and oxygen saturation was 98% on room air. Her chemistry showed that her serum sodium was 122, potassium 4.4, chloride 90, bicarbonate 26, anion gap of 6, BUN 30, creatinine 1.6, estimated GFR was 35 mL per minute. Her glucose was 733 mg/dL. Lactic acid was 2.7. Her calcium was 9.5, phosphorus 4.3, magnesium was 1.8. Total bilirubin, AST, ALT were normal. Alkaline phosphatase were elevated. Her total protein was 8.3, albumin 3, and lipase was 182. Her urinalysis showed the urine was yellow, turbid with a pH of 6, specific gravity 1.005. There was a trace of protein, large amount of glucose, negative for ketones, moderate amount of blood, negative for nitrites and small amount of leukocyte esterase. There were 6-10 rbc's, more than 40 wbc's, moderate amount of bacteria. Her toxic screen was negative. IMPRESSION AND PLAN: In summary, this is a 47-year-old female patient who was admitted with hyperglycemia with poorly controlled type 2 diabetes. She has dehydration with acute kidney injury, lactic acidosis. DICTATION ENDS HERE GUILLE DEVINE MD DR: KIKO/tony JOB#: [id number] / [id number]
[2018-01-03] MEDS ORDERED: INSU100C4 SQ (15:12)
[2018-01-03] MEDS ORDERED: INSULIN LISPRO 300 UNITS/3 ML INSULN.PEN. SQ PRN (16:00)
[2018-01-03] MEDS ORDERED: LORazepam 2 MG/ML VIAL IV PRN (21:15)
[2018-01-04] VITALS (19 sets, daily range): BP systolic 94–157; BP diastolic 66–101
[2018-01-04 06:12] LABS: HEMATOCRIT 41.4 % (36.0-47.0); HEMOGLOBIN 13.9 g/dL (12.0-15.5); RED BLOOD COUNT 4.41 x10^6/uL (3.50-5.40); RED CELL DISTRIBUTION WIDTH 12.9 % (11.5-14.5); WHITE BLOOD COUNT 12.3 x10^3/uL (4.0-11.0)
[2018-01-04 06:21] LABS: ALBUMIN 1.9 g/dL (3.4-5.0); ALBUMIN/GLOBULIN RATIO 0.5 (1.0-1.7); CALCIUM 8.1 mg/dL (8.5-10.1); CREATININE 1.1 mg/dL (0.6-1.0); GFR 53.2; POTASSIUM 4.6 mmol/L (3.5-5.1); TOTAL BILIRUBIN 0.2 mg/dL (0.2-1.0); TOTAL PROTEIN 5.8 g/dL (6.4-8.2)
[2018-01-04] MEDS ORDERED: DEXTROSE 50% 25 GM / 50ML DISP.SYRIN. IV PRN (08:00)
[2018-01-04] MEDS: NICOTINE 21MG PATCH. TD SCH (09:14)
[2018-01-04] MEDS: INSULIN LISPRO 300 UNITS/3 ML INSULN.PEN. SQ SCH ×3 (09:15→16:36)
[2018-01-04] MEDS: cefTRIAXone IV Push 1 GM VIAL. IVP SCH (09:18)
[2018-01-04] MEDS: LACTOBACILLUS RHAMNOSUS GG 1 CAPSULE. PO SCH ×2 (09:18→21:08)
[2018-01-05 05:14] LABS: HEMOGLOBIN A1C 12.6 % (4.8-5.6)
[2018-01-05 05:58] LABS: HEMATOCRIT 39.4 % (36.0-47.0); HEMOGLOBIN 13.3 g/dL (12.0-15.5); RED BLOOD COUNT 4.19 x10^6/uL (3.50-5.40); RED CELL DISTRIBUTION WIDTH 13.4 % (11.5-14.5); WHITE BLOOD COUNT 8.8 x10^3/uL (4.0-11.0)
[2018-01-05 06:12] VITALS: BP 138/96
[2018-01-05 06:15] LABS: CALCIUM 7.6 mg/dL (8.5-10.1); CREATININE 1.1 mg/dL (0.6-1.0); GFR 53.2; POTASSIUM 4.1 mmol/L (3.5-5.1)
[2018-01-05] MEDS: LACTOBACILLUS RHAMNOSUS GG 1 CAPSULE. PO SCH (09:16)
[2018-01-05] MEDS: NICOTINE 21MG PATCH. TD SCH (09:17)
[2018-01-05] MEDS: cefTRIAXone IV Push 1 GM VIAL. IVP SCH (09:17)
[2018-01-05] MEDS: INSULIN LISPRO 300 UNITS/3 ML INSULN.PEN. SQ SCH ×2 (09:17→12:11)
--- NOTE | 2018-01-05 12:24 | PN ---
DATE: 01/04/2018 SUBJECTIVE: The patient is having a temper tantrum. She wants to eat nonstop; however, she does not want to take responsibility for her health. Apparently, she has never seen in [facility], was suggested to her multiple times, she has never been there. She has no primary care physician and she always talked about her mother, who will take care of her and do this for her, although she is 47 years old and should be adult responsible. So, our social services assistant contacted the [facility] and we will arrange for her to be followed there to get her placed her diabetic supplies from there. Meanwhile, we will put her back on drip today as her blood sugar has back again, now in the more than 400. PHYSICAL EXAMINATION: GENERAL: When I examined her, she was pale, cachectic, but no jaundice, cyanosis, or thyromegaly. No jugular venous distension. No limb edema. VITAL SIGNS: Her heart rate was 107, blood pressure 146/98, temperature was 98.7, respiratory rate was 20, and oxygen saturation was 96% on room air. Her intake was 7225, output was 1350. HEAD, EYES, EARS, NOSE, AND THROAT: Normocephalic, atraumatic. NECK: Supple. HEART: Showed normal first and second heart sounds with no gallop, rub, or murmur. CHEST: Clear to auscultation. No crepitation or rhonchi. ABDOMEN: Distended, soft, nontender. NEUROLOGIC: She is awake, alert, responding appropriately. All cranial nerves intact. She moves extremities without difficulty. She ambulates without assistance or assistive devices. LABORATORY DATA: Her lab work as of this morning showed a white cell count 12,300; hemoglobin 14; hematocrit 41; MCV 94; and platelet count 272,000. Her chemistry as of this morning showed a serum sodium of 132, potassium 4.6, chloride 102, bicarbonate 26, anion gap of 4, BUN 23, creatinine 1.1, estimated GFR was 53 mL per minute. Her glucose was 123. Lactic acid was 1.6, calcium was 8.1. Total bilirubin, AST, ALT were normal. Alkaline phosphatase slightly elevated. Total protein was 5.8, albumin was 1.9. Her urine culture is still pending at the time of this dictation. ASSESSMENT: 1. Poorly controlled type 2 diabetes that is insulin requiring. 2. Hypertension. 3. Noncompliance. 4. Urinary tract infection for which she is on IV Rocephin. PLAN: To continue the insulin drip tonight and then arrange for her to be discharged to be followed at [facility]. GUILLE DEVINE MD DR: KIKO/tony JOB#: [id number] / [id number]
[2018-01-05 12:33] VITALS: BP 155/109
--- NOTE | 2018-01-05 21:19 | DS ---
DATE OF DISCHARGE: HISTORY OF PRESENT ILLNESS: The patient is a 47-year-old female patient, who was admitted on 01/03/2018 with poorly controlled type 2 diabetes. She apparently has not had any insulin for the last 4 days, did not take any medication, has been complaining of constant nausea, vomiting and multiple episodes of abdominal pain. She was evaluated in the Emergency Room, was found to have markedly elevated blood sugar. Her blood sugar on admission of 577. She has also acute kidney injury with a creatinine of 1.6. Dilutional hyponatremia; however, her anion gap was normal. She was treated with IV fluid and insulin drip and she did well. Given that she has no insurance and our top case assembler has arranged for her to be seen at the [facility] and also at [facility] in [place] and also a volunteer organization that assists them to go to and fro from there for their physician's appointment. PHYSICAL EXAMINATION: GENERAL: When I saw her this afternoon, she looked well, extremely cachectic but no jaundice, cyanosis, or thyromegaly. No jugular venous distension. No limb edema. VITAL SIGNS: Her heart rate was 107, blood pressure was 155/109, temperature was 98.3, respiratory rate was 18 and oxygen saturation was 98% on room air. HEAD, EYES, EARS, NOSE AND THROAT: Normocephalic, atraumatic. NECK: Supple. HEART: Showed normal first and second heart sounds. No gallop, rub or murmur. CHEST: Clear to auscultation. No crepitation or rhonchi. ABDOMEN: Distended, soft, nontender. NEUROLOGIC: She is awake, alert, responding appropriately. Cranial nerves intact. She moves extremities without difficulty. She ambulates without assistance or assistive devices. Her intake over the last 24 hours was 4200, output was 1600. LABORATORY DATA: As of this morning showed her serum sodium 135, potassium 4.1, chloride 101, bicarbonate 27, anion gap of 7, BUN 30, creatinine 1.1, estimated GFR was ____ mL per minute. Her glucose was 189 and calcium was 7.6. Her white cell count was 8800, hemoglobin 13, hematocrit 39, MCV 94 and platelet count 234,000. DISCHARGE MEDICATIONS: The patient will be discharged to be followed at the [facility]. FINAL DISCHARGE DIAGNOSES: Type 2 diabetes mellitus, hypertension, polysubstance abuse, and noncompliance with medication and care. GUILLE DEVINE MD DR: KIKO/tony JOB#: [id number] / [id number]
== END 2018-01-05 16:06 | disposition home or self-care (01) | DRG 683 ==
LOC: ER 05:48 → ICU 07:52
PROVIDERS: ADMIT Internal Medicine; ATTEND Internal Medicine
DX: N17.9 Acute kidney failure, unspecified (principal); N39.0 Urinary tract infection, site not specified; E87.2 Acidosis; R65.10 Systemic inflammatory response syndrome (SIRS) of non-infectious origin without acute organ dysfunction; E11.65 Type 2 diabetes mellitus with hyperglycemia; E87.1 Hypo-osmolality and hyponatremia; E86.0 Dehydration; F17.210 Nicotine dependence, cigarettes, uncomplicated; F91.8 Other conduct disorders; I10 Essential (primary) hypertension; F19.10 Other psychoactive substance abuse, uncomplicated; Z79.4 Long term (current) use of insulin; Z91.19 Patient's noncompliance with other medical treatment and regimen; Z90.49 Acquired absence of other specified parts of digestive tract; Z88.5 Allergy status to narcotic agent
CPT/HCPCS: 36415; 36600; 80048; 80051; 80053; 80307; 81001; 82010; 82803; 82947; 83036; 83605; 83690; 83735; 84100; 85025; 85027; 87086; 87641; 96361; 96365; 96375; J0696; J1815; J2060; J2405; 99291-25; G0479; J7030

== ENCOUNTER 2019-05-30 10:17 | Emergency (ER) | payer SELFPAY ==
[~2019-05-30 10:17] MED LIST: INSU100C4 SQ
--- NOTE | 2019-05-30 10:52 | PHYS DOC ---
Past History Past Medical History: Diabetes, Hypertension, Hypotension, Pneumonia Additional Past Medical Histor: injection drug use Past Surgical History: Cholecystectomy Smoking: Cigarettes, Less than 1pk/day Alcohol Use: None Drug Use: Methamphetamine Adult General Chief Complaint Chief Complaint: MULTIPLE COMPLAINTS HPI HPI 48-year-old female presents with 2 day history of body aches and generalized weakness. The patient states "it feels like I have the flu. Crampy all over." Patient has not measured a fever at home. She has a history of TBI. She also admits to methamphetamine use recently. She has had a mild cough without sputum. She denies nausea or vomiting. Her worst pain is in the upper back. She denies shortness of breath or diaphoresis. Review of Systems Review of Systems Constitutional: chills [] Eyes: Denies change in visual acuity, redness, or eye pain [] HENT: Denies nasal congestion or sore throat [] Respiratory: Denies cough or shortness of breath [] Cardiovascular: No additional information not addressed in HPI [] GI: Denies abdominal pain, nausea, vomiting, bloody stools or diarrhea [] : Denies dysuria or hematuria [] Musculoskeletal: Body aches, thoracic back pain[] Integument: Denies rash or skin lesions [] Neurologic: Denies headache, focal weakness or sensory changes [] Endocrine: Denies polyuria or polydipsia [] All other systems were reviewed and found to be within normal limits, except as documented in this note. Current Medications Current Medications Current Medications Medications (Trade) Dose Ordered Sig/[facility] Start Time Stop Time Status Last Admin Dose Admin Sodium Chloride 1,000 ml @ 1,000 mls/hr 1X ONCE 05/30/19 11:00 05/30/19 11:59 Allergies Allergies Allergies Coded Allergies Type Severity Reaction Last Updated Verified codeine Allergy Intermediate Unknown 05/30/19 Yes Physical Exam Physical Exam Constitutional: Well developed, thin, no acute distress, non-toxic appearance. [] HENT: Normocephalic, atraumatic, bilateral external ears normal, oropharynx moist, no oral exudates, nose normal. [] Eyes: PERRLA, EOMI, conjunctiva normal, no discharge. [] Neck: Normal range of motion, no tenderness, supple, no stridor. [] Cardiovascular:Heart rate regular rhythm, no murmur [] Lungs & Thorax: Bilateral breath sounds clear to auscultation [] Abdomen: Bowel sounds normal, soft, no tenderness, no masses, no pulsatile masses. [] Skin: Warm, dry, no erythema, no rash. Multiple tattoos [] Back: No tenderness, no CVA tenderness. [] Extremities: No tenderness, no cyanosis, no clubbing, ROM intact, no edema. [] Neurologic: Alert and oriented X 3, normal motor function, normal sensory function, no focal deficits noted. [] Psychologic: Affect normal, judgement normal, mood normal. [] Current Patient Data Vital Signs Vital Signs Date Time Temp Pulse Resp B/P (MAP) Pulse Ox O2 Delivery O2 Flow Rate FiO2 05/30/19 10:29 98.4 96 18 100 Room Air EKG EKG [] Radiology/Procedures Radiology/Procedures [] Impressions: CHEST AP ONLY History: Back pain.. Comparison: Image from September 15, 2017, but no available report. FINDINGS: Cardiomediastinal silhouette is not enlarged. Aortic calcifications are seen. No evidence of pneumothorax. No pleural effusion. No evidence of infiltrate. There are several small irregular densities at the right midlung, stable since previous exam of 08/31/2017. Metallic structure overlies the right upper medial chest, overlying the medial right clavicle, presumably something external to the patient. Similar structures are also seen over the right glenoid and left supraclavicular region. IMPRESSION: No evidence of consolidating infiltrate. Electronically signed by: Tom Soares MD (05/30/2019 11:13 AM) [id number] DICTATED AND SIGNED BY: TOM SOARES MD DATE: 05/30/19 1113 CC: VINCENT SALVADOR DO; ABEBA GIRON DO ~ Course & Med Decision Making Course & Med Decision Making Pertinent Labs and Imaging studies reviewed. (See chart for details) Patient appears dehydrated. We have given her 1 L normal saline. She has urinary tract infection. I will treat her for 5 days of Macrobid. Patient is also posit jeff for methamphetamine use. She should stop using drugs. She is stable for discharge at this time. [] Dragon Disclaimer Dragon Disclaimer This electronic medical record was generated, in whole or in part, using a voice recognition dictation system. Departure Departure: Impression: Primary Impression: UTI (urinary tract infection) Additional Impression: Methamphetamine abuse Disposition: HOME, SELF-CARE Condition: STABLE Referrals: ABEBA GIRON DO (PCP) Patient Instructions: Methamphetamine Abuse, Complications, Urinary Tract Infection, Ipiu-ek-[id number] Scripts Nitrofurantoin Monohyd/M-Cryst (MACROBID 100 MG CAPSULE) 100 Mg Capsule 1 CAP PO BID for UTI, #10 CAP Prov: VINCENT SALVADOR DO 05/30/19 Problem Qualifiers Primary Impression: UTI (urinary tract infection) Urinary tract infection type: acute cystitis Hematuria presence: with hematuria Qualified Codes: N30.01 - Acute cystitis with hematuria VINCENT SALVADOR DO May 30, 2019 10:52
[2019-05-30] MEDS ORDERED: IV NORMAL SALINE 1,000ML 1,000 ML IV ONE (11:00)
[2019-05-30 11:05] LABS: BASO # 0.1 x10^3/uL (0.0-0.2); BASO % 1 % (0-3); EOS % 0 % (0-3); HEMATOCRIT 52.1 % (36.0-47.0); LYMPH # 1.2 x10^3/uL (1.0-4.8); LYMPH % 11 % (24-48); MEAN CORPUSCULAR HEMOGLOBIN 33 pg (25-35); MEAN CORPUSCULAR HGB CONC 35 g/dL (31-37); MEAN CORPUSCULAR VOLUME 95 fL (79-100); MONO # 1.1 x10^3/uL (0.0-1.1); MONO % 11 % (0-9); NEUT # 8.2 x10^3uL (1.8-7.7); NEUT % 78 % (31-73); PLATELET COUNT 216 x10^3/uL (140-400); RED CELL DISTRIBUTION WIDTH 12.6 % (11.5-14.5); WHITE BLOOD COUNT 10.6 x10^3/uL (4.0-11.0)
--- NOTE | 2019-05-30 11:17 | RAD ---
CHEST AP ONLY History: Back pain.. Comparison: Image from September 15, 2017, but no available report. FINDINGS: Cardiomediastinal silhouette is not enlarged. Aortic calcifications are seen. No evidence of pneumothorax. No pleural effusion. No evidence of infiltrate. There are several small irregular densities at the right midlung, stable since previous exam of 08/31/2017. Metallic structure overlies the right upper medial chest, overlying the medial right clavicle, presumably something external to the patient. Similar structures are also seen over the right glenoid and left supraclavicular region. IMPRESSION: No evidence of consolidating infiltrate. Electronically signed by: Tom Soares MD (05/30/2019 11:13 AM) [facility]
[2019-05-30 11:18] LABS: ALBUMIN 2.7 g/dL (3.4-5.0); ALBUMIN/GLOBULIN RATIO 0.5 (1.0-1.7); CREATININE 1.4 mg/dL (0.6-1.0); GFR 40.1; POTASSIUM 4.9 mmol/L (3.5-5.1); TOTAL BILIRUBIN 0.5 mg/dL (0.2-1.0); TOTAL PROTEIN 8.3 g/dL (6.4-8.2)
[2019-05-30 12:18] LABS: BARBITURATES NEG (NEG); BENZODIAZEPINES NEG (NEG); CANNABINOIDS NEG (NEG); COCAINE NEG (NEG); METHADONE NEG (NEG); OPIATES NEG (NEG); PHENCYCLIDINE NEG (NEG)
[2019-05-30 12:19] LABS: AMPHETAMINE/METHAMPHETAMINE POS (NEG)
[2019-05-30 12:27] LABS: BILIRUBIN,URINE NEG (NEG); CLARITY,URINE CLOUDY; COLOR,URINE STRAW; GLUCOSE,URINE 100 mg/dL (NEG); NITRITE,URINE POS (NEG); UROBILINOGEN,URINE 0.2 mg/dL (0.2 mg/dL)
[2019-05-30 12:28] LABS: BACTERIA,URINE MOD /HPF (0-FEW); RBC,URINE 0 /HPF (0-2); SQUAMOUS EPITHELIAL CELL,UR OCC /LPF
[2019-05-30] MEDS ORDERED: NITR100C62 PO (12:57)
[2019-05-30 13:10] VITALS: BP 157/103
--- NOTE | 2019-05-30 13:27 | EKG ---
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
== END 2019-05-30 13:10 | disposition home or self-care (01) ==
LOC: ER 10:17
DX: N30.01 Acute cystitis with hematuria (principal); E11.9 Type 2 diabetes mellitus without complications; I10 Essential (primary) hypertension; F17.210 Nicotine dependence, cigarettes, uncomplicated; F15.10 Other stimulant abuse, uncomplicated; Z88.5 Allergy status to narcotic agent
CPT/HCPCS: 36415; 71045; 80053; 80307; 81001; 82947; 84484; 85025; 87086; 87186; 93005; 96360; 96361; 99285-25; J7030

== ENCOUNTER 2020-09-02 01:49 | Inpatient (IN) | payer SELFPAY ==
[~2020-09-02] VITALS: Ht 152.4 cm; Wt 53.3 kg
[~2020-09-02 01:49] MED LIST changes: +NITR100C62 PO
--- NOTE | 2020-09-02 02:47 | PHYS DOC ---
Past History Past Medical History: Diabetes, Hypertension, Hypotension, Pneumonia Additional Past Medical Histor: injection drug use Past Surgical History: Cholecystectomy Smoking: Cigarettes, Less than 1pk/day Alcohol Use: None Drug Use: Methamphetamine General Adult EDM: Chief Complaint: HEADACHE HPI: HPI: 49-year-old female past medical history of diabetes, TBI (lives with her parents), hypertension and COPD/tobacco dependence, presents to the ED with complaints of " I am just getting worse, my headaches not getting better." Reports complaints of shortness of breath, decreased appetite, body aches and loose stools for the past 2 weeks. Saw her primary care physician on Wednesday who prescribed her Keflex 500 mg. Patient believes she was admitted to [facility], transferred from [place] for pneumonia. Does not believe she was tested for Covid. Influenza is not up-to-date. Review of Systems: Review of Systems: Constitutional: Denies fever or chills or lack of taste/smell Eyes: Denies change in visual acuity HENT: Denies nasal congestion or sore throat Respiratory: Denies cough or shortness of breath Cardiovascular: Denies chest pain or edema GI: Denies abdominal pain, nausea, vomiting, melena, hematochezia, hematemesis : Denies dysuria or hematuria Musculoskeletal: Denies back pain or joint pain Integument: Denies rash Neurologic: Denies neck stiffness, focal weakness or sensory changes Endocrine: Denies polyuria or polydipsia Lymphatic: Denies swollen glands Psychiatric: Denies depression or anxiety Current Medications: Current Meds: Current Medications Medications (Trade) Dose Ordered Sig/Alfonso Start Time Stop Time Status Last Admin Dose Admin Dexamethasone Sodium Phosphate (Decadron) 10 mg 1X ONCE 09/02/20 03:00 09/02/20 03:01 Diphenhydramine HCl (Benadryl) 25 mg 1X ONCE 09/02/20 03:00 09/02/20 03:01 Prochlorperazine Edisylate (Compazine) 10 mg 1X ONCE 09/02/20 03:00 09/02/20 03:01 Sodium Chloride 1,000 ml @ 1,000 mls/hr Q1H 09/02/20 03:00 09/02/20 03:59 Allergies: Allergies: Allergies Coded Allergies Type Severity Reaction Last Updated Verified codeine Allergy Intermediate Unknown 05/30/19 Yes Physical Exam: PE: Constitutional: Afebrile, weak, malnourished HENT: Normocephalic, atraumatic, very dry mucous membranes Eyes: EOMI, conjunctiva normal, no discharge. Neck: Normal range of motion, supple, Cardiovascular: S1/2 present, regular rhythm Lungs & Thorax: Speaking in full sentences, bilateral equal chest rise, no tachypnea or increased work of breathing Abdomen: soft, no tenderness, Skin: Warm, dry, Back: No tenderness, no CVA tenderness. [] Extremities: No tenderness, no cyanosis, no edema Neurologic: Alert and oriented X 3, normal motor function, normal sensory function, no focal deficits noted. [] Psychologic: Affect normal, judgement normal, mood normal. [] EKG: EKG: Sinus rhythm 80 bpm-with PACs, no axis deviation, QTC 467, T wave inversion 1 and aVL, no ST elevations or ST depressions Radiology/Procedures: Radiology/Procedures: IMAGING REPORT Signed PATIENT: ONELIA CAMPBELL ACCOUNT: [id number] : 1970 LOCATION: ER AGE: 49 SEX: F EXAM STATUS: REG ER ORD. PHYSICIAN: GEORGI PADRON DO REASON: flu PROCEDURE: PORTABLE CHEST 1V Single view chest dated 09/02/2020. Comparison made to 05/30/2019. CLINICAL INDICATION: Flu symptoms. FINDINGS: Single upright portable exam performed. Heart and mediastinal contours within normal limits. There is some patchy/nodular density at the right lung base, new from prior study. There are a few scattered calcified granuloma. No pleural effusion or pneumothorax. IMPRESSION: Patchy/nodular opacity right lower lobe, new from prior study. This could be related to early pneumonia. Suggest short-term follow-up imaging after treatment to ensure resolution. Electronically signed by: Tom Herrera MD (09/02/2020 2:55 AM) [facility] [place] DICTATED AND SIGNED BY: TOM HERRERA MD DATE: 09/02/20 0253 CC: HOUSTON GIRON DO; GEORGI PADRON DO ~MTH0 0 Heart Score: Risk Factors: Risk Factors: DM, Current or recent (<one month) smoker, HTN, HLP, family history of CAD, obesity. Risk Scores: Score 0 - 3: 2.5% MACE over next 6 weeks - Discharge Home Score 4 - 6: 20.3% MACE over next 6 weeks - Admit for Clinical Observation Score 7 - 10: 72.7% MACE over next 6 weeks - Early Invasive Strategies Course & Med Decision Making: Course & Med Decision Making Pertinent Labs and Imaging studies reviewed. (See chart for details) COVID-19 CRITERIA: The patient was evaluated during the global COVID-19 pandemic, and that diagnosis was suspected/considered upon their initial presentation. Their evaluation, treatment and testing was consistent with current guidelines for patients who present with complaints or symptoms that may be related to COVID-19. Concern for PUI/with early/new RLL pneumonia. Labs with no leukocytosis. Transaminitis, new from prior. Acute on ckd. Chronic hyponatremia and uncontrolled non-AG diabetes/hyperglycemia. Influenza negative. Covid test pending. Will admit for further medical management. Patient stable at time of admission and agrees with this plan. I have spoken with the patient and/or caregivers. I have explained the patient's condition, diagnosis and treatment plan based on the information available to me at this time. I have answered the patient's and/or caregivers questions and answered any concerns. The patient and/or caregivers have as good an understanding of the patient's diagnosis, condition and treatment plan as can be expected at this point. The patient has been stabilized within the capability of the emergency department. The patient will be transported for further care and management or will be moved to an observation or inpatient service. I have communicated with the staff or medical practitioner taking over this patient's care. Benigno Disclaimer: Benigno Disclaimer: This electronic medical record was generated, in whole or in part, using a voice recognition dictation system. Departure Departure: Impression: Primary Impression: Pneumonia Additional Impressions: Person under investigation for COVID-19 Chronic hyponatremia Acute on chronic kidney failure Transaminitis Disposition: ADMITTED INPT THIS HOSP Admitting Physician: Tyrone Steve Condition: STABLE Referrals: HOUSTON GIRON DO (PCP) GEORGI PADRON DO Sep 02, 2020 02:47
--- NOTE | 2020-09-02 02:49 | EKG ---
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
[2020-09-02 02:58] LABS: BASO % 1 % (0-3); EOS % 1 % (0-3); HEMATOCRIT 46.1 % (36.0-47.0); HEMOGLOBIN 15.3 g/dL (12.0-15.5); LYMPH # 1.3 x10^3/uL (1.0-4.8); LYMPH % 29 % (24-48); MEAN CORPUSCULAR HEMOGLOBIN 31 pg (25-35); MEAN CORPUSCULAR HGB CONC 33 g/dL (31-37); MEAN CORPUSCULAR VOLUME 94 fL (79-100); MONO # 0.5 x10^3/uL (0.0-1.1); MONO % 12 % (0-9); NEUT # 2.5 x10^3uL (1.8-7.7); NEUT % 57 % (31-73); PLATELET COUNT 154 x10^3/uL (140-400); RED BLOOD COUNT 4.88 x10^6/uL (3.50-5.40); RED CELL DISTRIBUTION WIDTH 13.2 % (11.5-14.5); WHITE BLOOD COUNT 4.4 x10^3/uL (4.0-11.0)
--- NOTE | 2020-09-02 02:58 | RAD ---
Single view chest dated 09/02/2020. Comparison made to 05/30/2019. CLINICAL INDICATION: Flu symptoms. FINDINGS: Single upright portable exam performed. Heart and mediastinal contours within normal limits. There is some patchy/nodular density at the right lung base, new from prior study. There are a few scattered calcified granuloma. No pleural effusion or pneumothorax. IMPRESSION: Patchy/nodular opacity right lower lobe, new from prior study. This could be related to early pneumon ia. Suggest short-term follow-up imaging after treatment to ensure resolution. Electronically signed by: Tom Herrera MD (09/02/2020 2:55 AM) [facility]
[2020-09-02] MEDS ORDERED: IV NORMAL SALINE 1,000ML 1,000 ML IV SCH (03:00)
[2020-09-02] MEDS ORDERED: diphenhydrAMINE 50 MG/ML VIAL IVP ONE (03:00)
[2020-09-02] MEDS ORDERED: DEXAMETHASONE SOD PHOS 10 MG/ML VIAL. IV ONE (03:00)
[2020-09-02] MEDS ORDERED: PROCHLORPERAZINE 10 MG/2 ML VIAL. IV ONE (03:00)
[2020-09-02 03:06] LABS: PREG TEST PT QUAL NEGATIVE (NEG)
[2020-09-02 03:25] LABS: ALBUMIN 2.7 g/dL (3.4-5.0); ALBUMIN/GLOBULIN RATIO 0.7 (1.0-1.7); CALCIUM 8.4 mg/dL (8.5-10.1); CREATININE 1.9 mg/dL (0.6-1.0); GFR 28.1; POTASSIUM 4.7 mmol/L (3.5-5.1); TOTAL BILIRUBIN 0.1 mg/dL (0.2-1.0); TOTAL PROTEIN 6.7 g/dL (6.4-8.2)
[2020-09-02 04:03] LABS: INFLUENZA A PATIENT NEGATIVE (NEGATIVE); INFLUENZA B PATIENT NEGATIVE (NEGATIVE)
[2020-09-02] MEDS ORDERED: ACETAMINOPHEN 325 MG TABLET PO PRN (05:00)
[2020-09-02] MEDS ORDERED: ONDANSETRON PF 4 MG/2 ML VIAL. IVP PRN (05:00)
[2020-09-02] MEDS ORDERED: AZITHROMYCIN 500 MG VIAL. IV ONE (05:20)
[2020-09-02] MEDS ORDERED: cefTRIAXone SODIUM 1 GM VIAL ONE (05:20)
[2020-09-02] MEDS ORDERED: IV NORMAL SALINE 50ML 50 ML ONE (05:20)
[2020-09-02] MEDS ORDERED: IV NORMAL SALINE 250ML 250 ML ONE (05:20)
[2020-09-02] MEDS ORDERED: AZITHROMYCIN 500 MG in IV NORMAL SALINE 250ML 250 ML IV ONE (05:30)
[2020-09-02] MEDS ORDERED: IV NORMAL SALINE 1,000ML 1,000 ML IV ONE (05:30)
[2020-09-02 08:25] VITALS: BP 139/88
[2020-09-02] MEDS ORDERED: CARV25TA PO (09:28)
[2020-09-02] MEDS ORDERED: INSULIN HUMAN INH (09:28)
[2020-09-02] MEDS ORDERED: CEPH-264 PO (09:28)
[2020-09-02 14:35] VITALS: BP 158/90
[2020-09-02] MEDS ORDERED: DEXTROSE 50% 25 GM / 50ML DISP.SYRIN. IV PRN (17:45)
--- NOTE | 2020-09-02 18:08 | HP ---
ADMIT DATE: 09/02/2020 HISTORY OF PRESENT ILLNESS: The patient is a 49-year-old female patient who came to the Emergency Room with a complaint that she is getting worse, headaches are not getting better. She reports that she has been having shortness of breath, decreased appetite, body aches and loose stool for the past 2 weeks, so her primary care physician on Wednesday, who prescribed her Keflex. The patient believes that she was admitted to [facility], transferred from [facility] for pneumonia, does not believe that she was treated for COVID and her influenza vaccine is not up-to-date. She was extensively investigated in the Emergency Room with lab work as well as imaging studies. Her CBC was unremarkable. Her chemistry showed that she has severe hyperglycemia, impaired liver enzymes and her troponin has been elevated and her influenza A and B were negative; however, her coronavirus by PCR was detectable and was admitted with COVID-19 pneumonia as her chest x-ray showed patchy nodular opacities, right lower lobe, new from prior study. This could be related to early pneumonia suggestive short-term followup imaging after treatment to ensure resolution. She was admitted therefore with COVID-19 pneumonia, acute hypoxic respiratory failure, severe hyperglycemia, dilutional hyponatremia. She also has acute kidney injury, impaired liver, acute transaminitis and elevated troponin. PAST MEDICAL HISTORY: Significant for type 2 diabetes mellitus and hypertension. She has also COPD and several TIAs. PAST SURGICAL HISTORY: Significant for cholecystectomy, x 2, tubal ligation. ALLERGIES: SHE IS ALLERGIC TO CODEINE AND POISON GREG. FAMILY HISTORY: She is actually adopted, does not know her biological parents. She lives with her adopted parents. SOCIAL HISTORY: She is , has a son and a daughter. She is an everyday smoker. She does not drink alcohol. She smokes marijuana and uses also amphetamine. She used to work in the [employer] services before; however, she has had traumatic brain injury and since then she has been able to work. REVIEW OF SYSTEMS: The patient denied any blurring of vision, cataract, glaucoma or macular degeneration. Denied any earache, tinnitus or sensorineural deafness. Denied stuffy nose or nosebleed. Denied any sore throat, sore tongue, toothache, hoarseness of voice or difficulty swallowing. Did complain of nausea and vomiting as well as diarrhea. Did complain of aches and pains, headache, poor appetite. MEDICATIONS: She is currently on following medications: She is on cephalexin 500 mg once a day, carvedilol 25 mg, ____ 8 units 3 times a day before meals. PHYSICAL EXAMINATION: GENERAL: On arrival to the Emergency Room, the patient looked well and was in no apparent respiratory distress. No pallor, jaundice, cyanosis or thyromegaly. No jugular venous distention. No limb edema. VITAL SIGNS: Her heart rate was 95, blood pressure was 133/95, temperature was 98, respiratory rate was 18, and oxygen saturation was 100% on room air. HEAD, EYES, EARS, NOSE AND THROAT: Showed normocephalic, atraumatic. NECK: Supple. HEART: Showed normal first and second heart sounds. No gallop, rub or murmur. CHEST: Clear to auscultation. No crepitation or rhonchi. ABDOMEN: Scaphoid, soft, nontender. NEUROLOGIC: She was awake, alert, responding appropriately. All cranial nerves intact. EXTREMITIES: She moves extremities without difficulty. She ambulates without assistance or assistive devices. LABORATORY DATA: Her lab work showed a white cell count of 4400, hemoglobin 15, hematocrit 46, MCV 94 and platelet count of 154,000. Her chemistry showed a serum sodium of 124, potassium 4.7, chloride 91, bicarbonate 27, anion gap of 6, BUN 26, creatinine 1.9, estimated GFR was 28 mL per minute. Her glucose was 583. Calcium was 8.4. Total bilirubin 0.1. AST, ALT, alkaline phosphatase are all elevated. CK was 74. Troponin I was 0.037. Total protein 6.7, albumin was 2.7. Serum test was negative. Her influenza A and B were negative. Coronavirus by PCR was detectable. She did have a chest x-ray, which showed the heart and mediastinal contours are within normal limits. There is some patchy nodular opacity at the right lung base, new from prior study. There are few scattered calcified granulomas. No pleural effusion or pneumothorax. ASSESSMENT AND PLAN: The patient was admitted with COVID-19 pneumonia versus community-acquired pneumonia, severe hyperglycemia without evidence of ketoacidosis, dilutional hyponatremia, acute kidney injury. Her baseline creatinine is about 1.1. My plan is to start her on IV antibiotic in the form of Rocephin and Zithromax, started on insulin sliding scale and Lantus insulin at nighttime. Continue with IV fluid and we will decide on further management accordingly. GUILLE DEVINE MD DR: KIKO/tony JOB#: [id number] / [id number]
[2020-09-02 20:08] VITALS: BP 174/95
[2020-09-02] MEDS ORDERED: INSULIN GLARGINE SYRINGE. SQ SCH (21:00)
[2020-09-02] MEDS ORDERED: INSULIN LISPRO 300 UNITS/3 ML VIAL. SQ ONE (21:30)
[2020-09-02] MEDS: IV NORMAL SALINE 1,000ML 1,000 ML IV SCH (21:54)
[2020-09-02] MEDS: INSULIN GLARGINE SYRINGE. SQ SCH (21:56)
[2020-09-03] MEDS: IV NORMAL SALINE 1,000ML 1,000 ML IV SCH ×2 (03:34→14:43)
[2020-09-03 05:53] VITALS: BP 146/90
[2020-09-03 07:12] LABS: HEMATOCRIT 47.2 % (36.0-47.0); HEMOGLOBIN 15.9 g/dL (12.0-15.5); RED BLOOD COUNT 5.08 x10^6/uL (3.50-5.40); RED CELL DISTRIBUTION WIDTH 12.8 % (11.5-14.5); WHITE BLOOD COUNT 8.2 x10^3/uL (4.0-11.0)
[2020-09-03 07:31] LABS: ALBUMIN 2.7 g/dL (3.4-5.0); ALBUMIN/GLOBULIN RATIO 0.7 (1.0-1.7); CALCIUM 8.5 mg/dL (8.5-10.1); CREATININE 1.2 mg/dL (0.6-1.0); GFR 47.7; POTASSIUM 4.6 mmol/L (3.5-5.1); TOTAL BILIRUBIN 0.2 mg/dL (0.2-1.0); TOTAL PROTEIN 6.8 g/dL (6.4-8.2)
[2020-09-03] MEDS: AZITHROMYCIN 250 MG TABLET. PO SCH (08:08)
[2020-09-03] MEDS: ACETAMINOPHEN 325 MG TABLET PO PRN ×3 (08:08→23:18)
[2020-09-03] MEDS: INSULIN LISPRO 300 UNITS/3 ML VIAL. SQ SCH ×6 (08:11→17:24)
[2020-09-03 10:34] VITALS: BP 117/74
--- NOTE | 2020-09-03 14:34 | PN ---
DATE: 09/03/2020 SUBJECTIVE: The patient is resting, slightly propped up in bed, in no apparent distress. She continued to have recurrent bouts of dry hacking cough, has had no more headache, stuffy nose. Denied any nausea or vomiting. Denied any diarrhea. PHYSICAL EXAMINATION: GENERAL: When I examined her, she looked well and was clearly in no apparent respiratory distress. No pallor, jaundice, cyanosis, or thyromegaly. No jugular venous distention. No lower limb edema. VITAL SIGNS: Her heart rate was 89, blood pressure 117/74, temperature was 98.1, respiratory rate was 20, and oxygen saturation was 97% on room air. HEAD, EYES, EARS, NOSE, AND THROAT: Showed normocephalic, atraumatic. NECK: Supple. HEART: Showed normal first and second heart sounds. No gallop, rub or murmur. CHEST: Shows central trachea, equal bilateral expansion, air entry expands with crepitation mostly on the right side posteriorly. I could not appreciate any of rhonchi. ABDOMEN: Scaphoid, soft, nontender. NEUROLOGIC: She is awake, alert, and responding appropriately. All cranial nerves intact. She moves extremities without difficulty. Her intake was 1000. No output was recorded. LABORATORY DATA: Her lab work this morning showed her white cell count was 8200, hemoglobin 16, hematocrit 47, MCV 93, and platelet count of 175,000. Her chemistry showed her serum sodium is up to 131, potassium 4.6, chloride 98, bicarbonate 26, anion gap of 7, BUN 28, creatinine 1.2, and estimated GFR was 47 mL per minute. Her glucose was 180, calcium was 8.5. Total bilirubin, AST, and ALT were normal. Alkaline phosphatase slightly elevated. Her total protein 6.8, albumin was 2.7. Her influenza A and B were negative. Coronavirus was detectable. ASSESSMENT: 1. Coronavirus pneumonia versus community-acquired pneumonia. 2. Poorly controlled type 2 diabetes with severe hyperglycemia without evidence of ketoacidosis. 3. Dilutional hyponatremia. 4. Acute kidney injury that has improved. In fact, her creatinine came down from 1.9 to 1.2. Her sodium has risen from 124 to 131. PLAN: Obviously to continue with the antibiotic. Continue with IV fluid. Continue to monitor her blood sugar and adjust insulin as needed. GUILLE DEVINE MD DR: Josselyn JOB#: [id number] / [id number]
[2020-09-03 14:57] VITALS: BP 136/87
[2020-09-03 19:44] VITALS: BP 148/82
[2020-09-03] MEDS: INSULIN GLARGINE SYRINGE. SQ SCH (20:50)
[2020-09-03] MEDS: LACTOBACILLUS RHAMNOSUS GG 1 CAPSULE. PO SCH (20:51)
[2020-09-03 23:13] VITALS: BP 156/91
[2020-09-04] MEDS: IV NORMAL SALINE 1,000ML 1,000 ML IV SCH (00:42)
[2020-09-04 05:31] VITALS: BP 158/99
[2020-09-04 06:17] LABS: HEMATOCRIT 46.3 % (36.0-47.0); HEMOGLOBIN 15.4 g/dL (12.0-15.5); RED BLOOD COUNT 4.96 x10^6/uL (3.50-5.40); RED CELL DISTRIBUTION WIDTH 13.1 % (11.5-14.5)
[2020-09-04 06:23] LABS: CALCIUM 8.1 mg/dL (8.5-10.1); CREATININE 1.3 mg/dL (0.6-1.0); GFR 43.5; POTASSIUM 4.2 mmol/L (3.5-5.1)
[2020-09-04] MEDS: AZITHROMYCIN 250 MG TABLET. PO SCH (08:17)
[2020-09-04] MEDS: LACTOBACILLUS RHAMNOSUS GG 1 CAPSULE. PO SCH (08:17)
[2020-09-04] MEDS: INSULIN LISPRO 300 UNITS/3 ML VIAL. SQ SCH ×2 (08:21→08:30)
--- NOTE | 2020-09-04 08:39 | DS ---
DATE OF DISCHARGE: 09/04/2020 ATTENDING PHYSICIAN: Dr. Steve. FINAL DISCHARGE DIAGNOSES: 1. Uncontrolled diabetes mellitus. 2. COVID-19 positive status. 3. Chronic obstructive pulmonary disease with continued tobacco use. 4. Polysubstance abuse. 5. Hyponatremia, corrected. 6. Underlying depression and anxiety. 7. Continued tobacco abuse. HISTORY AND PHYSICAL: This is a 49-year-old female admitted to the ED with elevated blood sugar, shortness of breath and generalized debilitation. She had COVID-19 positive swab. Her chest x-ray really did not look that bad. There was a question about patchy nodular opacities in the right lower lobe. She was treated accordingly. PHYSICAL EXAMINATION: Please see the dictated note. PERTINENT LABORATORY AND X-RAY STUDIES: Coronavirus swab was detected. Influenza A and B were negative. Hemoglobin was 15.3 g/dL, white count 4400. Chemistry panel showed an improvement of her sodium to 139 mEq/L, creatinine 1.3. Hemoglobin A1c was 12.6. Subsequent blood sugars were drawn down to 125. COURSE IN THE HOSPITAL: The patient was admitted and started on empiric IV antibiotics. She was given supplemental oxygen along with insulin control and was better in a controlled environment. Clearly, she has not been taking her insulin given her high A1c. On the third hospital day, she has had a mild headache. She had no respiratory distress. She insisted on going home. She was actively throwing things and being a nasty to the nursing staff. I examined her lungs were clear. She was moving air well. Her oxygen saturation 95% on room air, blood pressure 158/99 and temperature 98.8 degrees Fahrenheit. I think it is safe for her to be discharged. I recommended 5 more days of Keflex 500 mg p.o. t.i.d., Percocet 7.5 mg 1 every 6 hours p.r.n. pain and continuation of her insulin as prescribed. Her Humalog before each meal and a Lispro at bedtime. Whether or not she will be compliant remains to be seen. Her other discharge medications includes her Coreg 25 mg b.i.d. Strong encouragement to avoid further tobacco and substance use whether or not she will make these changes remains to be seen. She was discharged then from our hospital in stable condition with explicit instructions on followup care. DESEAN HOWARD MD DR: JAMES/tony JOB#: [id number] / [id number] GUILLE Martin MD
[2020-09-04] MEDS ORDERED: OXYC1TAB19 PO (11:32)
== END 2020-09-04 10:40 | disposition home or self-care (01) | DRG 177 ==
LOC: ER 01:49 → 1 SOUTH 06:31
PROVIDERS: ADMIT Internal Medicine; ATTEND Internal Medicine
DX: U07.1 COVID-19 (principal); J12.89 Other viral pneumonia; J96.01 Acute respiratory failure with hypoxia; E87.1 Hypo-osmolality and hyponatremia; J44.0 Chronic obstructive pulmonary disease with (acute) lower respiratory infection; N17.9 Acute kidney failure, unspecified; E11.22 Type 2 diabetes mellitus with diabetic chronic kidney disease; E11.65 Type 2 diabetes mellitus with hyperglycemia; F12.90 Cannabis use, unspecified, uncomplicated; F17.200 Nicotine dependence, unspecified, uncomplicated; F32.9 Major depressive disorder, single episode, unspecified; F41.9 Anxiety disorder, unspecified; I12.9 Hypertensive chronic kidney disease with stage 1 through stage 4 chronic kidney disease, or unspecified chronic kidney disease; N18.9 Chronic kidney disease, unspecified; Z82.49 Family history of ischemic heart disease and other diseases of the circulatory system; Z82.5 Family history of asthma and other chronic lower respiratory diseases; Z86.73 Personal history of transient ischemic attack (TIA), and cerebral infarction without residual deficits
CPT/HCPCS: 36415; 71045; 80048; 80053; 82550; 82947; 84484; 84703; 85025; 85027; 87804; 93005; 96361; 96365; 96368; 96375; 99285; J0456; J0696; J0780; J1100; J1200; J1815; J7050; U0003; J7030

== ENCOUNTER 2021-07-02 08:18 | Observation (INO) | payer OTHER ==
[~2021-07-02] VITALS: Ht 154.9 cm; Wt 51.8 kg
[~2021-07-02 08:18] MED LIST changes: +CARV25TA PO; +CEPH-264 PO; +INSULIN HUMAN INH; +OXYC1TAB19 PO
--- NOTE | 2021-07-02 08:35 | PHYS DOC ---
Past History Past Medical History: Diabetes, Hypertension, Hypotension, Pneumonia Additional Past Medical Histor: injection drug use Past Surgical History: Cholecystectomy Smoking: Cigarettes, Less than 1pk/day Alcohol Use: None Drug Use: Methamphetamine Adult General Chief Complaint Chief Complaint: COUGH HPI HPI Patient is a 50-year-old female presenting via EMS for cough. This is been going on for past 3 weeks. Nothing known makes better, patient continues to smoke cigarettes which makes worse. Reports generalized body aches and pains but no focal pain. Timing of symptoms has been constant since onset but worsened in last 72 hours. Admits development of URI symptoms such as rhinorrhea and a cough without fever. Has history of COPD, no other concerning comorbid conditions such as prior history of CVA or CAD. She takes no blood thinners on a daily basis. As mentioned, no fever, vision changes, chest pain, ripping or tearing sensation in torso, abdominal pain, vomiting or diarrhea, no changes in motor or sensory or neuro function. She is unvaccinated against COVID-19 Review of Systems Review of Systems Fourteen body systems of review of systems have been reviewed. See HPI for pertinent positives and negative responses, other arguello all other systems are negative, non-pertinent or non-contributory Allergies Allergies Allergies Coded Allergies Type Severity Reaction Last Updated Verified codeine Allergy Intermediate Unknown 05/30/19 Yes Physical Exam Physical Exam General: Appears well, non toxic, and comfortable Skin: Warm, dry. Normal for ethnicity. HEENT: Atraumatic. PERRLA. Rhinorrhea and congestion. Nasal turbinates boggy b/l. Moist mucous membranes with poor dentition globally. Uvula midline. Maintaining secretions. No phonation changes. Neck: Trachea midline. Normal ROM. No stridor. Respiratory: Normal WOB. CTAB w/o w/r/r. No tachypnea. Cardiovascular: Regular rate and rhythm. Normal peripheral perfusion. Abdomen: Soft. Non tender. No distension. Back: Normal ROM. Musculoskeletal: No swelling or deformity. Neuro: Alert and oriented x 4. MAEE. Lymph: No cervical LAD. Psych: Tearful affect, anxious mood Current Patient Data Vital Signs Vital Signs Date Time Temp Pulse Resp B/P (MAP) Pulse Ox O2 Delivery O2 Flow Rate FiO2 07/02/21 08:30 98.3 108 24 107/55 (72) 100 Nasal Cannula 2.0 Vital Signs Date Time Temp Pulse Resp B/P (MAP) Pulse Ox O2 Delivery O2 Flow Rate FiO2 07/02/21 08:45 98 20 98 Room Air 07/02/21 08:30 98.3 107/55 (72) 2.0 Lab Results Laboratory Tests Test 07/02/21 09:07 White Blood Count 6.5 x10^3/uL Red Blood Count 4.82 x10^6/uL Hemoglobin 15.2 g/dL Hematocrit 46.0 % Mean Corpuscular Volume 95 fL Mean Corpuscular Hemoglobin 32 pg Mean Corpuscular Hemoglobin Concent 33 g/dL Red Cell Distribution Width 13.3 % Platelet Count 243 x10^3/uL Neutrophils (%) (Auto) 62 % Lymphocytes (%) (Auto) 27 % Monocytes (%) (Auto) 9 % Eosinophils (%) (Auto) 2 % Basophils (%) (Auto) 1 % Neutrophils # (Auto) 4.1 x10^3uL Lymphocytes # (Auto) 1.7 x10^3/uL Monocytes # (Auto) 0.6 x10^3/uL Eosinophils # (Auto) 0.2 x10^3/uL Basophils # (Auto) 0.0 x10^3/uL Sodium Level 137 mmol/L Potassium Level 4.3 mmol/L Chloride Level 102 mmol/L Carbon Dioxide Level 30 mmol/L Anion Gap 5 Blood Urea Nitrogen 22 mg/dL Creatinine 1.5 mg/dL Estimated GFR (Cockcroft-Gault) 36.8 Glucose Level 329 mg/dL Lactic Acid Level 0.9 mmol/L Calcium Level 8.5 mg/dL Troponin I Quantitative 0.155 ng/mL MD-Ehz-N-Type Natriuretic Peptide Pending Current Medications Medications (Trade) Dose Ordered Sig/Alfonso Route PRN Reason Start Time Stop Time Status Last Admin Dose Admin Iohexol (Omnipaque 350 Mg/ml) 100 ml 1X ONCE IV 07/02/21 09:00 07/02/21 09:07 DC EKG EKG EKG ordered and interpreted by myself at 0851 hrs. is sinus rhythm at 92 bpm, unremarkable intervals, no axis deviation, T wave inversion noted in lead V6, no STEMI Radiology/Procedures Radiology/Procedures AP chest. HISTORY: Cough AP view was taken of the chest. Heart is upper normal in size. There are hazy infiltrates in both lung bases. Pneumonia is possible, atypical or viral pneumonia or Covid 19 pneumonia could have this pattern. Pulmonary edema would be possible. There is slight blunting of the right costophrenic angle suggesting a small effusion. IMPRESSION: 1. Hazy bilateral infiltrates or edema. Electronically signed by: Alessandro Todd MD (07/02/2021 9:24 AM) [id number] Heart Score C/O Chest Pain: No HEART Score for Chest Pain: HEART Score for Chest Pain Response (Comments) Value History Slighlty/Non-Suspicious 0 ECG Normal 0 Age >45 - < 65 1 Risk Factors 1 or 2 Risk Factors 1 Total 2 Risk Factors: Risk Factors: DM, Current or recent (<one month) smoker, HTN, HLP, family history of CAD, obesity. Risk Scores: Risk Factors: DM, Current or recent (<one month) smoker, HTN, HLP, family history of CAD, obesity. Course & Med Decision Making Course & Med Decision Making ABCs unremarkable. I disclosed entirety of ER findings and discussed most likely diagnosis of bilateral pneumonia, cannot rule out COVID-19 and so PCR results are pending. Other diagnoses were discussed with patient such as ACS, pulmonary embolism and other potentially life-threatening and emergent diagnoses but all deemed less likely causes of patient's presentation. Joint decision made to discharge home with antibiotic only, patient tolerated azithromycin in ER with subsequent prescription given. Joint decision to defer steroid use in absence of any wheezing in fact that patient is diabetic as steroid use could worsen her glycemic control. Joint decision made to defer any further diagnostic work-up regarding pulmonary embolism in ER setting. Tachycardic that resolves after patient is verbally deescalated and calm down, I discussed limitations of D- dimer study and joint decision made to defer CT angio chest given patient's obvious URI symptoms on presentation and likely infectious etiology of symptoms versus pulmonary embolism. Ultimately, plan of care discussed at length with need for close outpatient follow-up to review today's ER visit stressed. Strict return precautions were also discussed at length with good understanding verbalized by patient. Patient voiced understanding and agreement with the plan. Patient knows to come back for repeat evaluation if concerning signs or symptoms present prior to outpatient follow-up. Hemodynamically stable, ambulatory and well-appearing at time of disposition. Dragon Disclaimer Dragon Disclaimer This electronic medical record was generated, in whole or in part, using a voice recognition dictation system. Departure Departure: Impression: Primary Impression: Bilateral pneumonia Additional Impression: Person under investigation for COVID-19 Disposition: HOME / SELF CARE / HOMELESS Condition: STABLE Referrals: HOUSTON GIRON DO (PCP) Additional Instructions: You were seen for cough and possible infection with COVID-19. Your physical exam was reassuring. Your chest x-ray was concerning for bilateral pneumonia. We tested you for COVID-19 but this test does not come back for 1 to 2 days. In the meantime you need to quarantine yourself at home away from all other individuals, especially those who are elderly or have any other chronic health issues or an immunocompromised status. You should return to the ED if you develop worsening cough, shortness of breath, chest pain, or any other new or concerning symptoms. Alternate Tylenol and ibuprofen as needed for body aches and pain. If your test does come back positive you need to quarantine yourself for 10 days until symptom-free. You should make sure to drink plenty of fluids and get plenty of rest. Please take prescribed antibiotic to completion as scheduled Scripts Azithromycin (AZITHROMYCIN TABLET) 250 Mg Tablet 250 MG PO DAILY for ANTI-BIOTIC, #4 TAB 0 Refills Prov: GERMAN BRAMBILA DO 07/02/21 Problem Qualifiers GERMAN BRAMBILA DO Jul 02, 2021 08:35
[2021-07-02] MEDS ORDERED: IOHEXOL 350 MG/ML 100 ML VIAL. IV ONE (09:00)
[2021-07-02 09:26] LABS: BASO % 1 % (0-3); EOS # 0.2 x10^3/uL (0.0-0.7); EOS % 2 % (0-3); HEMOGLOBIN 15.2 g/dL (12.0-15.5); LYMPH # 1.7 x10^3/uL (1.0-4.8); LYMPH % 27 % (24-48); MEAN CORPUSCULAR HEMOGLOBIN 32 pg (25-35); MEAN CORPUSCULAR HGB CONC 33 g/dL (31-37); MEAN CORPUSCULAR VOLUME 95 fL (79-100); MONO # 0.6 x10^3/uL (0.0-1.1); MONO % 9 % (0-9); NEUT # 4.1 x10^3uL (1.8-7.7); NEUT % 62 % (31-73); PLATELET COUNT 243 x10^3/uL (140-400); RED BLOOD COUNT 4.82 x10^6/uL (3.50-5.40); RED CELL DISTRIBUTION WIDTH 13.3 % (11.5-14.5); WHITE BLOOD COUNT 6.5 x10^3/uL (4.0-11.0)
--- NOTE | 2021-07-02 09:27 | RAD ---
AP chest. HISTORY: Cough AP view was taken of the chest. Heart is upper normal in size. There are hazy infiltrates in both dom g bases. Pneumonia is possible, atypical or viral pneumonia or Covid 19 pneumonia could have this pat tern. Pulmonary edema would be possible. There is slight blunting of the right costophrenic angle sug gesting a small effusion. IMPRESSION: 1. Hazy bilateral infiltrates or edema. Electronically signed by: Alessandro Todd MD (07/02/2021 9:24 AM) [id number]
[2021-07-02 09:36] LABS: CALCIUM 8.5 mg/dL (8.5-10.1); CREATININE 1.5 mg/dL (0.6-1.0); GFR 36.8; POTASSIUM 4.3 mmol/L (3.5-5.1)
[2021-07-02] MEDS ORDERED: AZIT250T6 PO (09:49)
[2021-07-02] MEDS ORDERED: AZITHROMYCIN 250 MG TABLET. PO ONE (10:00)
--- NOTE | 2021-07-02 10:20 | EKG ---
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
[2021-07-02] MEDS ORDERED: NITROGLYCERIN SUBLINGUAL 0.4 MG BOTTLE OF 25. SL PRN (10:30)
[2021-07-02] MEDS ORDERED: AZITHROMYCIN 500 MG in IV NORMAL SALINE 250ML 250 ML IV ONE (10:30)
[2021-07-02] MEDS ORDERED: ACETAMINOPHEN 325 MG TABLET PO PRN (10:30)
[2021-07-02] MEDS ORDERED: AZITHROMYCIN 500 MG VIAL. IV ONE (11:04)
[2021-07-02] MEDS ORDERED: IV NORMAL SALINE 250ML 250 ML ONE (11:04)
[2021-07-02 14:12] VITALS: BP 131/93
--- NOTE | 2021-07-02 14:56 | NUR ---
PT ARRIVED TO ROOM 121 VIA EMS GURNEY. PT CAME WITH SOME OF HER BELONGINGS. UPON ENTRY TO THE ROOM, THIS RN OVERHEARD PT ON THE PHONE WITH HER MOM TELLING HER SHE HAD A HEART ATTACK AND THAT SHE LOVED EVERYONE. PT STATES SHE DOES NOT FEEL SAFE AT HOME. CM NOTIFIED. PT SAYS HER MOM AND DAD DON'T BUY MEAT, BELITTLE HER, THREATEN TO KICK HER OUT AND CALL THE POLICE, AND ACCUSE HER. PT ON DISABILITY. PT SON ALSO LIVES IN THE HOME. PT DAILY SMOKER. PT VERY ANXIOUS AND AFRAID SHE IS GOING TO .
--- NOTE | 2021-07-02 15:25 | NUR ---
CARDIOLOGY CONSULT CALLED
[2021-07-02] MEDS ORDERED: TEMAZEPAM 15 MG CAPSULE PO PRN (19:45)
[2021-07-02 20:53] VITALS: BP 185/127
[2021-07-02] MEDS ORDERED: INSULIN GLARGINE SYRINGE. SQ SCH (21:00)
[2021-07-02 23:00] VITALS: BP 149/97
--- NOTE | 2021-07-03 01:50 | NUR ---
At approx 1900, pt began screaming loudly in her room, saying she was signing out AMA if she was not given something to help her sleep; very distressed, tearful; notified, order taken for prn Restoril 30mg; sleeping soundly within 1 hr.
[2021-07-03 05:00] VITALS: BP 133/89
[2021-07-03 07:15] LABS: CALCIUM 8.4 mg/dL (8.5-10.1); CREATININE 1.2 mg/dL (0.6-1.0); GFR 47.6; POTASSIUM 4.1 mmol/L (3.5-5.1)
[2021-07-03 07:18] LABS: BASO # 0.1 x10^3/uL (0.0-0.2); BASO % 1 % (0-3); EOS # 0.1 x10^3/uL (0.0-0.7); EOS % 2 % (0-3); HEMATOCRIT 46.2 % (36.0-47.0); HEMOGLOBIN 15.5 g/dL (12.0-15.5); LYMPH # 2.4 x10^3/uL (1.0-4.8); LYMPH % 35 % (24-48); MEAN CORPUSCULAR HEMOGLOBIN 32 pg (25-35); MEAN CORPUSCULAR HGB CONC 34 g/dL (31-37); MEAN CORPUSCULAR VOLUME 95 fL (79-100); MONO # 0.6 x10^3/uL (0.0-1.1); MONO % 9 % (0-9); NEUT # 3.6 x10^3uL (1.8-7.7); NEUT % 53 % (31-73); PLATELET COUNT 229 x10^3/uL (140-400); RED BLOOD COUNT 4.84 x10^6/uL (3.50-5.40); RED CELL DISTRIBUTION WIDTH 13.3 % (11.5-14.5); WHITE BLOOD COUNT 6.8 x10^3/uL (4.0-11.0)
[2021-07-03] MEDS ORDERED: INSULIN LISPRO 300 UNITS/3 ML VIAL. SQ SCH (08:00)
[2021-07-03] MEDS ORDERED: ASPIRIN CHEWABLE 81 MG TABLET. PO SCH (08:00)
[2021-07-03 08:06] VITALS: BP 133/89
--- NOTE | 2021-07-03 08:22 | HP ---
DATE OF SERVICE: 07/03/2021 ADMIT DATE: 07/02/2021 ATTENDING PHYSICIAN: Dr. Dyer. CHIEF COMPLAINT: Shortness of breath. HISTORY OF PRESENT ILLNESS: The patient is a 50-year-old female who has a dry nonproductive cough. She had body aches and she has not been vaccinated for COVID. She was admitted for further treatment and evaluation. She also had an elevation of cardiac enzymes. There is a cardiology consultation. She has no symptoms at this time I suspect of stress demand ischemia. Her chest x-ray showed a nonspecific scarring at the bases, whether this is infiltrate or not remains to be seen. She is on no blood thinners. She also is diabetic, but has been in denial, refused to take her insulin regimen per her PCP, Dr. Bautista. PAST MEDICAL HISTORY: Very sketchy. She has a past history of substance abuse and IV drug abuse. She is a heavy smoker. She has had a previous cholecystectomy. She is diabetic. She has hypertension and a previous pneumonia. She is noncompliant. She also uses methamphetamine. She has no teeth. CURRENT MEDICATIONS: Scheduled none. ALLERGIES: SHE HAS ALLERGIES TO PENICILLIN AND CODEINE, EXACT REACTION IS UNCLEAR. FAMILY HISTORY: She was adopted. She has no insight. She also suffers from posttraumatic stress syndrome. REVIEW OF SYSTEMS: Unremarkable. She is a poor historian. PHYSICAL EXAMINATION: GENERAL: When I saw her, this is an agitated female who appears older than her stated age. VITAL SIGNS: Initial vital signs showed a blood pressure of 180/120, repeat was down to 133/89, pulse was 99 and regular. She was afebrile, oxygen saturation 96% on room air. HEENT: Head is without trauma. Pupils are reactive. Sclerae nonicteric. Oropharynx is clear. NECK: Supple, no bruits identified. CARDIOVASCULAR: Showed regular heart tones. No gallop. ABDOMEN: Soft. EXTREMITIES: Without edema. NEUROLOGIC: Very agitated and a bit paranoid. PERTINENT LABORATORY AND X-RAY STUDIES: The chest x-ray showed slight blunting of the costophrenic angles, very small effusion. The angle is just slightly blunted. There is a questionable scarring and/or edema at the bases. Her admission troponin was above the limits of normal. Her hemoglobin 15.2 g/dL, white count 8500. Troponin was 0.14. Nonfasting blood sugar 376. Electrolytes, creatinine within normal range. ASSESSMENT: 1. A 50-year-old female with upper respiratory tract infection, rule out COVID-19 infection. 2. Uncontrolled diabetes. 3. Elevation of cardiac troponin due to stress demand ischemia. 4. Polysubstance abuse. 5. Major depression with anxiety. 6. Personality disorder. 7. Total noncompliance. PLAN: 1. She finally agreed to stay in the hospital. 2. Formal cardiology consultation. 3. Serial enzymes. 4. Await the COVID swab. 5. We will treat her sugars accordingly in the hospital. Whether or not she will continue to do this as an outpatient is highly spiculated. MAURICIO DR: Mamie TID: [id number] CC: Myron Bautista
--- NOTE | 2021-07-03 08:26 | PDOC2 ---
CARDIAC CONSULT DATE OF CONSULT DOS: DATE: 07/03/21 TIME: 08:22 REASON FOR CONSULT Reason for Consult Elevated troponins REFERRING PHYSICIAN Referring Physician Dr. Dyer SOURCE Source: Chart review, Patient HPI History of Present Illness This is a 50yo female who presented secondary to cough and shortness of breath for the last couple of weeks. No LE edema. No dizziness, diaphoresis, or chest pain. no recent illness or fevers. Cough has been intermittently productive of yellow cough. PAST MEDICAL HISTORY Cardiovascular: HTN Pulmonary: COPD Psych: Anxiety, Bipolar, Depression Endocrine: Diabetes PAST SURGICAL HISTORY Past Surgical History: Cholecystectomy FAMILY HISTORY Family History: Other (no pertinent history ) SOCIAL HISTORY Smoke: 1 pack per day ALCOHOL: none Drugs: None Lives: with Family CURRENT MEDICATIONS Current Medications Current Medications Iohexol (Omnipaque 350 Mg/ml) 100 ml 1X ONCE IV ; Start 07/02/21 at 09:00; Stop 07/02/21 at 09:07; Status DC Azithromycin (Zithromax) 500 mg 1X ONCE PO ; Start 07/02/21 at 10:00; Stop 07/02/21 at 10:01; Status DC Acetaminophen (Tylenol) 650 mg PRN Q4HRS PRN PO FEVER > 100.3'F; Start at 10:30; Stop 07/03/21 at 10:29 Nitroglycerin (Nitrostat) 0.4 mg PRN Q5MIN PRN SL CHEST PAIN; Start 07/02/21 at 10:30; Stop 07/03/21 at 10:29 Azithromycin 500 mg/Sodium Chloride 250 ml @ 250 mls/hr 1X ONCE IV Last administered on 07/02/21at 11:13; Start 07/02/21 at 10:30; Stop 07/02/21 at 11:29; Status DC Sodium Chloride 250 ml @ As Directed STK-MED ONCE .ROUTE ; Start 07/02/21 at 11:04; Stop 07/02/21 at 11:05; Status DC Azithromycin (Zithromax) 500 mg STK-MED ONCE IV ; Start 07/02/21 at 11:04; Stop 07/02/21 at 11:05; Status DC Carvedilol (Coreg) 25 mg DAILY PO Last administered on 07/03/21at 08:06; Start 07/03/21 at 09:00 Aspirin (Aspirin Chewable) 81 mg DAILYWBKFT PO Last administered on 07/03/21at 08:06; Start 07/03/21 at 08:00 Insulin Human Lispro (HumaLOG) 10 units TIDWMEALS SQ Last administered on 07/03/21at 08:05; Start 07/03/21 at 08:00 Insulin Glargine (Lantus Syringe) 15 unit QHS SQ Last administered on 07/02/21at 21:22; Start 07/02/21 at 21:00 Temazepam (Restoril) 30 mg PRN QHS PRN PO INSOMNIA Last administered on 07/02/21at 19:56; Start 07/02/21 at 19:45 Active Scripts Active Reported Coreg (Carvedilol) 25 Mg Tablet 25 Mg PO DAILY ALLERGIES Allergies: Coded Allergies: codeine (Verified Allergy, Intermediate, Unknown, 05/30/19) "makes me hyper" Penicillins (Verified Allergy, Unknown, 07/02/21) ROS Review of Systems 14 point ROS conducted with pertinent positives noted above in HPI PHYSICAL EXAM General: Alert, Oriented X3, Cooperative, No acute distress HEENT: Atraumatic, Mucous membr. moist/pink Lungs: Other (crackles) Heart: Regular rate Abdomen: Soft, No tenderness Extremities: No edema, Normal pulses Skin: No rashes, No breakdown Neuro: Normal speech, Sensation intact Psych/Mental Status: Mental status NL, Mood NL MUSCULOSKELETAL: Osteoarthritic changes both hands VITALS Vital Signs Vital Signs Date Time Temp Pulse Resp B/P (MAP) Pulse Ox O2 Delivery O2 Flow Rate FiO2 07/03/21 08:13 Room Air 07/03/21 08:06 102 133/89 07/03/21 05:00 98.6 18 96 07/02/21 08:30 2.0 LABS LABS Laboratory Tests Test 07/02/21 08:51 07/02/21 09:07 07/02/21 11:16 07/02/21 14:30 Coronavirus (COVID-19)(PCR) Not detected (NOT DETECTD) White Blood Count 6.5 x10^3/uL (4.0-11.0) Red Blood Count 4.82 x10^6/uL (3.50-5.40) Hemoglobin 15.2 g/dL (12.0-15.5) Hematocrit 46.0 % (36.0-47.0) Mean Corpuscular Volume 95 fL (79-100) Mean Corpuscular Hemoglobin 32 pg (25-35) Mean Corpuscular Hemoglobin Concent 33 g/dL (31-37) Red Cell Distribution Width 13.3 % (11.5-14.5) Platelet Count 243 x10^3/uL (140-400) Neutrophils (%) (Auto) 62 % (31-73) Lymphocytes (%) (Auto) 27 % (24-48) Monocytes (%) (Auto) 9 % (0-9) Eosinophils (%) (Auto) 2 % (0-3) Basophils (%) (Auto) 1 % (0-3) Neutrophils # (Auto) 4.1 x10^3uL (1.8-7.7) Lymphocytes # (Auto) 1.7 x10^3/uL (1.0-4.8) Monocytes # (Auto) 0.6 x10^3/uL (0.0-1.1) Eosinophils # (Auto) 0.2 x10^3/uL (0.0-0.7) Basophils # (Auto) 0.0 x10^3/uL (0.0-0.2) Sodium Level 137 mmol/L (136-145) Potassium Level 4.3 mmol/L (3.5-5.1) Chloride Level 102 mmol/L (98-107) Carbon Dioxide Level 30 mmol/L (21-32) Anion Gap 5 (6-14) Blood Urea Nitrogen 22 mg/dL (7-20) Creatinine 1.5 mg/dL (0.6-1.0) Estimated GFR (Cockcroft-Gault) 36.8 Glucose Level 329 mg/dL (70-99) Lactic Acid Level 0.9 mmol/L (0.4-2.0) Calcium Level 8.5 mg/dL (8.5-10.1) Troponin I Quantitative 0.155 ng/mL (0-0.055) 0.150 ng/mL (0-0.055) SW-Nvv-E-Type Natriuretic Peptide 57368 pg/mL (0-124) SARS-CoV-2 Antigen (Rapid) Negative (NEGATIVE) Test 07/02/21 17:04 07/02/21 17:45 07/02/21 20:12 07/03/21 06:16 Glucose (Fingerstick) 376 mg/dL (70-99) 339 mg/dL (70-99) Troponin I Quantitative 0.147 ng/mL (0-0.055) White Blood Count 6.8 x10^3/uL (4.0-11.0) Red Blood Count 4.84 x10^6/uL (3.50-5.40) Hemoglobin 15.5 g/dL (12.0-15.5) Hematocrit 46.2 % (36.0-47.0) Mean Corpuscular Volume 95 fL (79-100) Mean Corpuscular Hemoglobin 32 pg (25-35) Mean Corpuscular Hemoglobin Concent 34 g/dL (31-37) Red Cell Distribution Width 13.3 % (11.5-14.5) Platelet Count 229 x10^3/uL (140-400) Neutrophils (%) (Auto) 53 % (31-73) Lymphocytes (%) (Auto) 35 % (24-48) Monocytes (%) (Auto) 9 % (0-9) Eosinophils (%) (Auto) 2 % (0-3) Basophils (%) (Auto) 1 % (0-3) Neutrophils # (Auto) 3.6 x10^3uL (1.8-7.7) Lymphocytes # (Auto) 2.4 x10^3/uL (1.0-4.8) Monocytes # (Auto) 0.6 x10^3/uL (0.0-1.1) Eosinophils # (Auto) 0.1 x10^3/uL (0.0-0.7) Basophils # (Auto) 0.1 x10^3/uL (0.0-0.2) Sodium Level 138 mmol/L (136-145) Potassium Level 4.1 mmol/L (3.5-5.1) Chloride Level 104 mmol/L (98-107) Carbon Dioxide Level 27 mmol/L (21-32) Anion Gap 7 (6-14) Blood Urea Nitrogen 19 mg/dL (7-20) Creatinine 1.2 mg/dL (0.6-1.0) Estimated GFR (Cockcroft-Gault) 47.6 Glucose Level 183 mg/dL (70-99) Calcium Level 8.4 mg/dL (8.5-10.1) Test 07/03/21 07:49 Glucose (Fingerstick) 255 mg/dL (70-99) ASSESSMENT/PLAN Assessment/Plan 1. Dyspnea with acute on chronic probably diastolic dysfunction, AE COPD 2. Mild troponin elevation; trop peak 0.155. Most probably type II, demand ischemia in setting of acute CHF and JENNA. CP free. EKG shows SR with nonspecific ST/T changes 3. Hypertension; controlled 4. Diabetes, II; uncontrolled 5. JENNA; better 6. Anxiety, depression, bipolar 7. Tobaccoism; discussed, encouraged cessation Recommendations Mild diuresis ASA therapy Lipids Outpatient echo to assess LV systolic function and ischemic evaluation with stress test as arranged Discussed importance of medical compliance Follow up in our office as scheduled. KEN CLARK APRN Jul 03, 2021 08:26
[2021-07-03] MEDS ORDERED: POTASSIUM CHLORIDE 20 MEQ TABLET.ER. PO ONE (09:00)
[2021-07-03] MEDS ORDERED: CARVEDILOL 12.5 MG TABLET PO SCH (09:00)
[2021-07-03] MEDS ORDERED: FUROSEMIDE 40 MG/4 ML VIAL IVP ONE (09:00)
--- NOTE | 2021-07-03 10:25 | NUR ---
PT DISCHARGED. PT HAS HER BELONGINGS, DISCHARGE PAPERWORK, AND HANDWRITTEN PRESCRIPTIONS. PT WHEELED TO THE FRONT BY STAFF TO VEHICLE. PT MOM PICKED HER UP. PT EDUCATED ON SMOKING CESSATION, AND THE IMPORTANCE OF MEDICAL COMPLIANCE, TO INCLUDE ATTENDING HER FOLLOW UP CARDIOLOGY APPOINTMENTS AND TAKING HER MEDICATION.
--- NOTE | 2021-07-03 10:44 | DS ---
DATE OF DISCHARGE: 07/03/2021 ATTENDING PHYSICIAN: Dr. Dyer. FINAL DISCHARGE DIAGNOSES: 1. Upper respiratory tract infection, COVID-19 ruled out. 2. Uncontrolled diabetes. 3. Elevation of cardiac enzymes due to stress demand ischemia. 4. Polysubstance abuse. 5. Major depression and anxiety. 6. Personality disorder. 7. Total noncompliance. HISTORY AND PHYSICAL: The patient is a 50-year-old female, known diabetic. She has been noncompliant. She continues to smoke and does recreational drugs. She is admitted with a cough and congestion. She had an elevation of her cardiac enzymes. PHYSICAL EXAMINATION: Please see the dictated note. PERTINENT LABORATORY AND X-RAY STUDIES: On admission, her hemoglobin is 15.2 g/dL with a white count of 6500. The first set of cardiac enzymes was 0.16, repeated was down to 0.147. Nonfasting blood sugar 376, repeated with treatment was down to 255, creatinine 1.2 mg percent. Chest x-ray showed a slight blunting of the costophrenic angles with mild component of heart failure. COURSE IN THE HOSPITAL: The patient was admitted overnight. Her coronavirus swab was negative, she was taken out of isolation. I treated her accordingly with regular and Lantus insulin in the hospital with better controlled sugars. Formal Cardiology consultation was obtained. She wanted to go home. They recommended outpatient followup with echocardiogram and stress test, whether or not she will follow up remains to be seen. I seriously doubt it. In any event, I wrote her a script then for insulin. I did recommend 50 units of regular before each meal and a shot of Lantus 50 units at night. Whether or not she will follow through this remains to be seen. She was discharged then from our hospital in stable condition with explicit recommended followup care. Strong encouragement also to quit smoking. Whether or not she will quit remains to be seen. JAMES/JESSICA/TABATHA DR: Mamie TID: [id number] CC: Myron Bautista
== END 2021-07-03 10:27 | disposition home or self-care (01) ==
LOC: ER 08:18 → 1 SOUTH 10:25 → INTOOBSV 10:25
PROVIDERS: ADMIT Hospitalist; ATTEND Hospitalist
DX: J06.9 Acute upper respiratory infection, unspecified (principal); Z20.822 Contact with and (suspected) exposure to COVID-19; N17.9 Acute kidney failure, unspecified; E11.65 Type 2 diabetes mellitus with hyperglycemia; F31.9 Bipolar disorder, unspecified; J18.9 Pneumonia, unspecified organism; N39.0 Urinary tract infection, site not specified; F41.9 Anxiety disorder, unspecified; F60.9 Personality disorder, unspecified; F19.10 Other psychoactive substance abuse, uncomplicated; I11.0 Hypertensive heart disease with heart failure; I50.9 Heart failure, unspecified; I24.8 Other forms of acute ischemic heart disease; R77.8 Other specified abnormalities of plasma proteins; F15.10 Other stimulant abuse, uncomplicated; F17.210 Nicotine dependence, cigarettes, uncomplicated; R06.00 Dyspnea, unspecified; Z87.01 Personal history of pneumonia (recurrent); Z90.49 Acquired absence of other specified parts of digestive tract; Z91.19 Patient's noncompliance with other medical treatment and regimen; Z79.899 Other long term (current) drug therapy; Z79.4 Long term (current) use of insulin; Z79.82 Long term (current) use of aspirin
CPT/HCPCS: 36415; 71045; 80048; 80061; 82947; 83605; 83880; 84484; 85025; 87040; 87426; 93005; 96365; 96366; 96372; 96375; 99285; G0378; J0456; J1815; J1940; J7050; U0003; G0379

== ENCOUNTER 2021-12-01 23:36 | Emergency (ER) | payer OTHER ==
[~2021-12-01 23:36] MED LIST changes: +AZIT250T6 PO
--- NOTE | 2021-12-01 23:49 | PHYS DOC ---
Past History Past Medical History: Diabetes, Hypertension, Hypotension, Pneumonia Additional Past Medical Histor: injection drug use Past Surgical History: Smoking: Cigarettes, Less than 1pk/day Alcohol Use: None Drug Use: Methamphetamine General Adult HPI: HPI: Patient is a 51 year old female who presents with dyspnea. Left from waiting room. Not seen or placed in a room. Pt. took ambulance here but angry that ambulance did not take her to another hospital. Review of Systems: Review of Systems: Constitutional: Denies fever or chills Eyes: Denies change in visual acuity HENT: Denies nasal congestion or sore throat Respiratory: Denies cough or shortness of breath Cardiovascular: Denies chest pain or edema GI: Denies abdominal pain, nausea, vomiting, bloody stools or diarrhea : Denies dysuria Musculoskeletal: Denies back pain or joint pain Integument: Denies rash Neurologic: Denies headache, focal weakness or sensory changes Endocrine: Denies polyuria or polydipsia Lymphatic: Denies swollen glands Psychiatric: Denies depression or anxiety Allergies: Allergies: Allergies Coded Allergies Type Severity Reaction Last Updated Verified codeine Allergy Intermediate Unknown 05/30/19 Yes Penicillins Allergy Unknown 07/02/21 Yes Physical Exam: PE: No exam left from waiting room EKG: EKG: [] Radiology/Procedures: Radiology/Procedures: [] Heart Score: C/O Chest Pain: N/A Risk Factors: Risk Factors: DM, Current or recent (<one month) smoker, HTN, HLP, family history of CAD, obesity. Risk Scores: Score 0 - 3: 2.5% MACE over next 6 weeks - Discharge Home Score 4 - 6: 20.3% MACE over next 6 weeks - Admit for Clinical Observation Score 7 - 10: 72.7% MACE over next 6 weeks - Early Invasive Strategies Course & Med Decision Making: Course & Med Decision Making Pertinent Labs and Imaging studies reviewed. (See chart for details) Left without being seen. [] Benigno Disclaimer: Benigno Disclaimer: This electronic medical record was generated, in whole or in part, using a voice recognition dictation system. Departure Departure: Referrals: HOUSTON GIRON DO (PCP) Benigno Disclaimer This chart was dictated in whole or in part using Voice Recognition software in a busy, high-work load, and often noisy Emergency Department environment. It may contain unintended and wholly unrecognized errors or omissions. Dragon Disclaimer This chart was dictated in whole or in part using Voice Recognition software in a busy, high-work load, and often noisy Emergency Department environment. It may contain unintended and wholly unrecognized errors or omissions. ARIEL TSANG MD Dec 01, 2021 23:49
== END 2021-12-01 23:43 | disposition left against medical advice (07) ==
LOC: ER 23:36
DX: R06.00 Dyspnea, unspecified (principal); E11.9 Type 2 diabetes mellitus without complications; I10 Essential (primary) hypertension; F17.210 Nicotine dependence, cigarettes, uncomplicated; Z53.21 Procedure and treatment not carried out due to patient leaving prior to being seen by health care provider; Z88.5 Allergy status to narcotic agent; Z88.0 Allergy status to penicillin